=== PATIENT | male | born 1995 | race Caucasian/White ===

== ENCOUNTER 2018-12-13 18:13 | Emergency (ER) | payer SELFPAY ==
[2018-12-13 18:16] VITALS: BP 132/68; PULSE 95; RESP 16; TEMP 36.4; O2SAT 98; BMI 31.2
[2018-12-13] MEDS: 0.9% Normal Saline 1,000 ML 1000 ML IV (21:00)
[2018-12-13] MEDS: Ketorolac 30 MG/ML Syringe IV (21:00)
[2018-12-13 21:03] LABS: Bacteria 0 SEEN /hpf (None Seen); Mucous, Urine 0 SEEN /hpf (<or=2+); Red Blood Cells-Urine 0 SEEN /hpf (0-5); White Blood Cells 0 SEEN /hpf (0-5)
[2018-12-13 21:04] LABS: Absolute Neutrophil Count 2.7 X10^3/uL (2.0-7.7); Basophil# 0.04 X10^3/uL; Basophil% 0.6 % (0-1); Eosinophil# 0.11 X10^3/uL; Eosinophils% 1.8 % (0-5); Hemoglobin 15.7 g/dl (13.0-16.5); Lymphocyte % 47.9 % (19-41); Mean Corp Hgb Conc 33.4 g/gl (32-36); Mean Corpuscular Hgb 28.6 pg (27.0-32.0); Mean Corpuscular Volume 85.6 fL (80-94); Mean Platelet Vol. 9.9 fl (6.2-12.0); Monocyte# 0.45 X10^3/uL; Monocyte% 7.2 % (0-10); Neutrophil # 2.65 X10^3/uL (2.7-7.7); Neutrophil % 42.3 % (47-70); Platelet Count 246 K/mm3 (150-450); RBC Distribution Width CV 13.6 % (11.6-14.6); RBC Distribution Width SD 42.6 fl (35.1-43.9); Red Blood Count 5.49 M/mm3 (4.6-6.2); White Blood Count 6.3 K/mm3 (4.4-11.0)
[2018-12-13 21:19] LABS: POSITIVE COUNT NO; POSITIVE DIFFERENTIAL NO; POSITIVE MORPHOLOGY NO
[2018-12-13 21:19] LABS: Color, Urine Yellow (Yellow); Glucose, Dipstick Normal (Normal); Ketone-Dipstick Negative (Negative); Leukocyte Esterase-Dipstick Negative /ul (Negative); Nitrite-Dipstick Negative (Negative); Occult Blood-Urine Negative /ul (Negative); Protein-Dipstick Negative (Negative); Specific Gravity, Urine 1.015 (1.002-1.030); Urine Bilirubin Dipstick Negative (Negative); Urine Clarity Sl. Cloudy (Clear); Urine Urobilinogen Normal (Normal)
[2018-12-13 21:22] LABS: Anion Gap 3 (5-15); BUN 14 mg/dL (7-18); BUN/Creat Ratio 13.7 RATIO (10-20); Calcium,Total 8.6 mg/dL (8.5-10.1); Chloride 108 mmol/L (98-107); Creatinine, Serum 1.02 mg/dL (0.70-1.30); EST Glomerular Filtration Rate 94 mL/min (>60); Est Glom Filt Rate - Afr Amer 114 mL/min (>60); Estimated Creatinine Clearance 132.32 ml/min; Glucose 88 mg/dL (74-106); Potassium 3.7 mmol/L (3.5-5.1); Sodium Level 140 mmol/L (136-145)
[2018-12-13 21:28] LABS: Squamous Epithelial Cells - UA 0-5 SEEN /hpf (0-5)
--- NOTE | 2018-12-13 22:42 | CT_ITS ---
STUDY: CT ABDOMEN AND PELVIS WITH CONTRAST REASON FOR EXAM: Male, 23 years old. Left upper quadrant pain x3 days diarrhea RADIATION DOSAGE (If Supplied By Facility): CTDIvol = ( 24.59 ) mGy, DLP = ( 1612.96 ) mGycm TECHNIQUE: Transaxial images were obtained from the dome of the diaphragm to the symphysis pubis without oral contrast. Isovue 300 100 IV was administered. Sagittal and coronal images were reconstructed. Individualized dose optimization techniques were used for this CT. COMPARISON: None. FINDINGS: The visualized lung bases are unremarkable. The visualized portions of the heart are within normal limits. There is diffuse fatty infiltration throughout the liver with geographic sparing. Normal gallbladder and extrahepatic biliary system. Normal spleen. Normal pancreas. Normal bilateral adrenal glands. Normal right kidney. Normal left kidney. Normal visualized stomach. Normal small intestine. Normal colon. The appendix is visualized and appears normal. Normal abdominal aorta. Normal inferior vena cava. Normal retroperitoneum. Normal urinary bladder. Normal abdominal wall. Normal osseous structures. CT/Abdomen/Pelvis W IV Cont ONLY IMPRESSION: No acute disease. Incidental note is made of hepatic steatosis. Electronically Signed: Newton Gold MD at 23:50 EDT , Service support ,
[2018-12-13 22:49] VITALS: RESP 18
[2018-12-14 00:05] VITALS: BP 133/78; PULSE 72; RESP 18; O2SAT 95
--- NOTE | 2018-12-14 00:05 | ED.DCSUM_ITS ---
- ER Visit Summary Date of Service: 12/14/18 Chief Complaint: Abdominal pain and diarrhea History of Present Illness: The patient is a 23 M with a 6-week history of intermittent left lower quadrant abdominal pain. Patient states is becoming more frequent and more severe. He is reported diarrhea the last 6 weeks. No blood in the stool. He describes some chills but no fever. He denies any personal or family history of ulcerative colitis, Crohn's disease, or irritable bowel. He has no known history of diverticulitis. Physical Examination: Vital signs unremarkable. Patient sitting upright in bed no acute distress. Heart is regular rate and rhythm. Lung sounds are clear. Abdomen is soft with tenderness in the left lower quadrant. No palpable hernias noted. Test Results: CBC and chemistry studies unremarkable. Urinalysis normal. CT abdomen pelvis with IV contrast shows no acute disease. Emergency Department Course and Treatment: Patient was given Toradol and IV fluids. On repeat evaluation patient is resting comfortably. Test results are discussed with the patient and at bedside. He is advised to follow bland diet and increase fluids. He will be referred to a local physician to establish primary care. Treatment Plan: [] Disposition: Discharge Impression: Abdominal pain, uncertain etiology This note was generated with [employer] in [employer] (PRIMP) dictation software. It may contain incorrect words, spelling, and punctuation that were not noted in review of the chart prior to signing
--- NOTE | 2018-12-14 00:05 | ED.DEP ---
ED Disposition - Plan for ED Patient: Disposition: Home or Assisted Living Instructions: ED Abdominal Pain Unkn Cause Male Referrals: Parsad Dai MD [STAFF PHYSICIAN] - As Needed
== END 2018-12-14 00:10 | disposition home or self-care (01) ==
PROVIDERS: Emergency Provider Emergency Medicine
DX: R10.32 Left lower quadrant pain (principal); R19.7 Diarrhea, unspecified; K21.9 Gastro-esophageal reflux disease without esophagitis; Z79.899 Other long term (current) drug therapy
CPT/HCPCS: 74177; 80048; 81001; 85025; 96361; 96374; 99284; J7030; Q9967; A4216

== ENCOUNTER 2019-06-29 13:57 | Emergency (ER) | payer MEDICAID, SELFPAY ==
[2019-06-29 13:58] VITALS: BP 153/81; PULSE 98; RESP 16; TEMP 36.6; O2SAT 98; BMI 29.8
--- NOTE | 2019-06-29 14:29 | EKG12_ITS ---
Test Reason : CP Blood Pressure : / mmHG Vent. Rate : 090 BPM Atrial Rate : 090 BPM P-R Int : 146 ms QRS Dur : 084 ms QT Int : 348 ms P-R-T Axes : 006 008 -03 degrees QTc Int : 425 ms Normal sinus rhythm Minimal voltage criteria for LVH, may be normal variant Borderline ECG Confirmed by ANUJA MAGUIRE, DANAY ([id number]), editor school photograph SUSHANT PENDLETON ([id number]) on 07/06/2019 9:26:51 A M Referred By: TOBI Confirmed By:TERE LICEA MD
--- NOTE | 2019-06-29 14:40 | RAD_ITS ---
EXAM DESCRIPTION: PORTABLE AP CHEST CLINICAL HISTORY: 23 years Male, chest pain COMPARISON: None FINDINGS: The thorax is intact. The heart and mediastinum appear to be within normal limits. The lungs appear to be well areated without evidence of pneumonic consolidation or pleural effusion. RAD/Chest 1 View (Portable) IMPRESSION: Normal portable chest. Electronically Signed: Tee Henry, at 15:11 EDT Tel , Service support ,
[2019-06-29 14:50] LABS: Absolute Neutrophil Count 3.7 X10^3/uL (2.0-7.7); Basophil# 0.04 X10^3/uL; Basophil% 0.6 % (0-1); Eosinophil# 0.09 X10^3/uL; Eosinophils% 1.2 % (0-5); Hematocrit 46.9 % (40-54); Hemoglobin 15.1 g/dL (13.0-16.5); Lymphocyte % 39.9 % (19-41); Mean Corp Hgb Conc 32.2 g/dL (32-36); Mean Corpuscular Volume 86.9 fL (80-94); Mean Platelet Vol. 9.5 fl (6.2-12.0); Monocyte# 0.54 X10^3/uL; Monocyte% 7.4 % (0-10); NRBC Flagged by Analyzer 0 % (0-5); Neutrophil # 3.68 X10^3/uL (2.7-7.7); Neutrophil % 50.6 % (47-70); Platelet Count 230 K/mm3 (150-450); RBC Distribution Width CV 13.1 % (11.6-14.6); RBC Distribution Width SD 41.3 fl (35.1-43.9); White Blood Count 7.3 K/mm3 (4.4-11.0)
--- NOTE | 2019-06-29 15:01 | ED.VISSUMM ---
- ER Visit Summary Date of Service: 06/29/19 Chief Complaint: Chest pain History of Present Illness: The patient is a 23 M presenting with chest pain. He states this started intermittently this morning. He does not recall anything that makes this better or worse. He complains of sharp mid chest pain. He states he has had this one time in the past several years ago. It resolved on its own. He has history of GERD but states this does not feel similar. He denies PE/DVT risk factors. Denies CAD risk factors. No fever or cough. No other complaints. Physical Examination: Vitals are stable. Patient is afebrile. Alert no acute distress. HEENT exam is unremarkable. Neck is supple. Lungs are clear and equal bilaterally. Chest wall tenderness to palpation with no crepitus Heart is regular rate and rhythm. Abdomen is soft nontender nondistended. Extremities are unremarkable. No edema. Skin is warm and dry. No focal neurologic deficit. Remainder of exam is unremarkable. Emergency Department Course and Treatment: EKG is sinus rate of 90 with no acute ischemic changes. Patient was given Toradol IV. Chest x-ray shows no acute process. CBC, chemistries unremarkable. Troponin is negative. D-dimer negative. On reevaluation, patient is resting comfortably. Patient declined delta troponin. He is given Dr. Holly sonography technologist for no doctor for follow-up. He is advised to return to the ED if he has any worsening complaints. Advised to follow-up with PCP. Disposition: Discharge home Impression: Atypical chest pain This note was generated with [email or web address] dictation software. It may contain incorrect words, spelling, and punctuation that were not noted in review of the chart prior to signing ED Disposition - Plan for ED Patient: Instructions: CHEST PAIN, Uncertain Cause Referrals: Ric Holly MD [NON-STAFF] -
[2019-06-29] MEDS: Ketorolac 30 MG/ML Syringe IV (15:05)
[2019-06-29 15:07] VITALS: BP 137/100; PULSE 82; RESP 17; O2SAT 98
[2019-06-29 15:07] LABS: Anion Gap 4 (5-15); BUN 15 mg/dL (7-18); BUN/Creat Ratio 12.4 RATIO (10-20); Calcium,Total 9.1 mg/dL (8.5-10.1); Chloride 108 mmol/L (98-107); Creatinine, Serum 1.21 mg/dL (0.70-1.30); EST Glomerular Filtration Rate 77 mL/min (>60); Est Glom Filt Rate - Afr Amer 93 mL/min (>60); Estimated Creatinine Clearance 114.58 ml/min; Glucose 86 mg/dL (74-106); Potassium 3.9 mmol/L (3.5-5.1); Sodium Level 141 mmol/L (136-145)
[2019-06-29 15:19] LABS: D-Dimer Quantitative (DVT/PE) < 0.27 FEU/ug/m (0.27-0.49)
--- NOTE | 2019-06-29 16:12 | ED.DEP ---
ED Disposition - Plan for ED Patient: Instructions: CHEST PAIN, Uncertain Cause Referrals: Ric Holly MD [NON-STAFF] -
[2019-06-29 16:14] VITALS: BP 134/93; PULSE 89; RESP 17; O2SAT 95
== END 2019-06-29 16:27 | disposition home or self-care (01) ==
PROVIDERS: Emergency Provider Emergency Medicine
DX: R07.89 Other chest pain (principal); K21.9 Gastro-esophageal reflux disease without esophagitis; Z79.899 Other long term (current) drug therapy
CPT/HCPCS: 71045; 80048; 84484; 85025; 85379; 93005; 96374; 99284; A4216

== ENCOUNTER 2020-02-07 16:53 | Emergency (ER) | payer MEDICAID, SELFPAY ==
[2020-02-07 16:53] VITALS: BP 149/81; PULSE 132; RESP 18; TEMP 36.3; O2SAT 96; BMI 26.2
--- NOTE | 2020-02-07 17:07 | ED.DCSUM_ITS ---
- ER Visit Summary Date of Service: 02/07/20 Chief Complaint: Left foot injury History of Present Illness: The patient is a 24 M presenting with left foot injury. Patient was at work and dropped a heavy stone on his left foot. He is able to ambulate with pain. He took no medication prior to arrival. He denies other injuries. Physical Examination: Vitals are stable. Patient is afebrile. Alert no acute distress. HEENT exam is unremarkable. Lungs are clear and equal bilaterally. Heart is regular rate and rhythm. Extremities left great toe ecchymosis and tenderness. No midfoot or ankle tenderness. Normal pulses. Skin is warm and dry. No focal neurologic deficit. Remainder of exam is unremarkable. Emergency Department Course and Treatment: Left foot x-ray shows normal x-ray examination of the foot. Postop shoe was applied. Patient does not wish to file Worker's Compensation paperwork. He was advised to follow-up with primary care physician. Advised return to ED for worsening complaints. Disposition: Discharge home Impression: Left great toe contusion This note was generated with [employer] dictation software. It may contain incorrect words, spelling, and punctuation that were not noted in review of the chart prior to signing ED Disposition - Plan for ED Patient: Referrals: Eric Evans MD [Primary Care Provider] -
--- NOTE | 2020-02-07 17:22 | RAD_ITS ---
STUDY: X-RAY - LEFT FOOT CLINICAL: Male, 24 years old. LEFT FOOT PAIN AFTER DROPPING SOMETHING HEAVY ON TOP OF IT TECHNIQUE: 3 view(s) of the foot. COMPARISON: None. FINDINGS: Normal talus, calcaneus, and tarsal bones. Normal visualized subtalar, talonavicular, calcaneocuboid, tarsal and tarsometatarsal articulations. Normal metatarsi. Normal metatarsophalangeal joint of the great toe. Normal tibial and fibular sesamoid bones. Normal interphalangeal joint of the great toe. Normal phalanges of the great toe. Normal second through fifth metatarsophalangeal joints. Normal interphalangeal joints and phalanges of the lesser toes. The soft tissue structures are unremarkable. There is no demonstrated fracture. RAD/Foot min 3 Views IMPRESSION: Normal x-ray examination of the foot. Electronically Signed: Yoel Perales MD at 17:57 EDT , Service support ,
--- NOTE | 2020-02-07 18:19 | ED.DEP ---
ED Disposition - Plan for ED Patient: Instructions: ED FOOT CONTUSION Referrals: Eric Evans MD [Primary Care Provider] -
[2020-02-07 18:29] VITALS: PULSE 92
== END 2020-02-07 18:30 | disposition home or self-care (01) ==
PROVIDERS: Emergency Provider Emergency Medicine; PCP Family Medicine
DX: S90.112A Contusion of left great toe without damage to nail, initial encounter (principal); W20.8XXA Other cause of strike by thrown, projected or falling object, initial encounter; Y93.9 Activity, unspecified; Y92.9 Unspecified place or not applicable; Y99.0 Civilian activity done for income or pay; Z79.899 Other long term (current) drug therapy
CPT/HCPCS: 73630; 99284

== ENCOUNTER 2020-07-30 17:59 | Emergency (ER) | payer MEDICAID, SELFPAY ==
[2020-07-30 18:02] VITALS: BP 148/83; PULSE 104; RESP 18; TEMP 36.2; O2SAT 98; BMI 34.8
--- NOTE | 2020-07-30 19:44 | ED.VISSUMM ---
- ER Visit Summary Date of Service: 07/30/20 Chief Complaint: Headache History of Present Illness: The patient is a 25 M who presents with a headache. Started today. States he woke up with a headache. Throughout the day the headache is improving but states he had nausea and vomiting along with some photophobia. He has no history of migraine headaches. He did take Tylenol at home. He had some nausea and vomiting and a cough. He is concerned about coronavirus. He denies having any fevers. He has no neck pain. He states that his headache and symptoms are actually improving at this time Physical Examination: Vital signs reviewed. HEENT exam unremarkable. Heart is regular rate and rhythm without murmurs. Lungs are clear to auscultation. Abdomen is soft and nontender. Extremities reveal no edema. Skin exam normal. Neurologic exam normal. Test Results: None performed Emergency Department Course and Treatment: The patient looks well. He has a normal neurologic examination at this time. His symptoms are improving and therefore I do not feel he needs any imaging or laboratory studies at this time. I will give him Toradol and Zofran ODT here for his symptoms. He will have a coronavirus test which will be sent out. He will need to follow-up with his PCP. Treatment Plan: [] Disposition: Discharge Impression: Headache This note was generated with [employer] dictation software. It may contain incorrect words, spelling, and punctuation that were not noted in review of the chart prior to signing ED Disposition - Plan for ED Patient: Disposition: Home or Assisted Living Instructions: ED Headache Unspecified Referrals: Eric Evans MD [Primary Care Provider] -
[2020-07-30] MEDS: Ondansetron ODT 4 MG Tablet 8 MG PO (19:52)
[2020-07-30] MEDS: Ketorolac 30 MG/ML Syringe IM (19:52)
== END 2020-07-30 20:17 | disposition home or self-care (01) ==
PROVIDERS: Emergency Provider Emergency Medicine; PCP Family Medicine
DX: R51.9 Headache, unspecified (principal); R05 Cough; R11.2 Nausea with vomiting, unspecified
CPT/HCPCS: 87635; 96372; 99283; U0003

== ENCOUNTER 2020-08-01 22:29 | Emergency (ER) | payer MEDICAID, SELFPAY ==
[2020-08-01 22:30] VITALS: BP 138/88; PULSE 90; RESP 16; TEMP 36.1; O2SAT 99; BMI 26.4
--- NOTE | 2020-08-01 22:41 | ED.VIS.UPPEX ---
History of Present Illness Chief Complaint: Laceration Informant: Patient Occurred: Today - JPTA Mechanism/Context: Injury - accidentally scraped while handling a potato slicer while moving/packing Context: Sudden Onset Timing: Continuous Quality of Pain: - - sore Location: right little fingertip Current Severity: Mild Maximum Severity: Moderate Worsened by: palpation Relieved by: leaving alone/bandage Associated Symptoms: Negative for: Parasthesia, Weakness, Loss of Funtion Narrative: RHD. Tetanus Immunization: >10 years - Past Medical History (1) GERD (gastroesophageal reflux disease) Status: Chronic Past Medical History - Allergies and Home Meds Allergies/Adverse Reactions: Allergies No Known Allergies Allergy (Verified 08/01/20 22:32) Primary Care Physician: Eric Evans MD [Primary Care Provider] - Lives: With Family Smoking Status: Former smoker Review of Systems General: Denies: Chills, Fever, Sweats Musculoskeletal: Reports: Extremity Pain. Denies: Swelling Skin: Reports: Wounds. Denies: Rash Neurological: Denies: Headache, Weakness, Numbness Physical Exam Vital Signs/Narrative: Vital Signs Temp Pulse Resp BP Pulse Ox 08/01/20 22:30 97 F L 90 16 138/88 H 99 General: Well nourished, Well developed, - - NAD Head: Normocephalic, Atraumatic Extremeties: Very small epidermal avulsion to the distal aspect of the right little finger, just ulnar to the nail. Full range of motion, no subungual hematoma or other injuries. Skin: Normal color, No rash, Trauma - Minor tender epidermal avulsion, dermis is intact and there is no laceration, right little fingertip. Neurological: Alert, Oriented x3, Cranial nerves II-XII grossly intact, Normal Strength, Normal Sensation, Normal Gait Psychological: Normal affect, Normal Mood Diagnostic/Tx/Re-eval - Medical Decision Making Patient was reassured, there is no repair indicated, there is no laceration. Is a very minor avulsion of the epidermis, it is less than half centimeter long it was cleansed and bandaged with bacitracin, he desired a tetanus update which is fine, although this is not a high risk tetanus wound. ED Disposition - Plan for ED Patient: Disposition: Home or Assisted Living Diagnosis: Abrasion of right little finger, Tetanus-diphtheria (Td) vaccination Instructions: ED AVULSION LACERATION Referrals: Eric Evans MD [Primary Care Provider] - As Needed
[2020-08-01] MEDS: Diphth,Pertuss(Acell),Tet Vac 0.5 ML Vial IM (22:52)
== END 2020-08-01 23:01 | disposition home or self-care (01) ==
LOC: ED 22:51
PROVIDERS: Emergency Provider Emergency Medicine; PCP Family Medicine
DX: S60.416A Abrasion of right little finger, initial encounter (principal); W27.4XXA Contact with kitchen utensil, initial encounter; Y93.E6 Activity, residential relocation; Y92.9 Unspecified place or not applicable; Y99.9 Unspecified external cause status; Z23 Encounter for immunization; K21.9 Gastro-esophageal reflux disease without esophagitis; Z79.899 Other long term (current) drug therapy; Z87.891 Personal history of nicotine dependence
CPT/HCPCS: 90715; 99282

== ENCOUNTER 2020-10-28 19:59 | Emergency (ER) | payer MEDICAID, SELFPAY ==
[2020-10-28 20:00] VITALS: BP 151/96; PULSE 100; RESP 18; TEMP 36.5; O2SAT 99; BMI 28.7
--- NOTE | 2020-10-28 20:12 | ED.DCSUM_ITS ---
History of Present Illness Chief Complaint: Abd Pain Informant: Patient Narrative: 25-year-old male presenting with lower chest wall and upper abdominal pain since this morning. He states that yesterday he was sledding on a saucer and was going fairly fast hit a bump and came down on the ring partially striking his chest and partially striking his abdomen. He states he did not have abdominal pain until this morning but it has been painful all day. He denies feeling shortness of breath, constipation, diarrhea. He does not see any bruising on his chest or abdomen. He states the pain is worse in the right side. - Past Medical History (1) GERD (gastroesophageal reflux disease) Status: Chronic Past Medical History - Allergies and Home Meds Allergies/Adverse Reactions: Allergies No Known Allergies Allergy (Verified 10/28/20 20:02) Primary Care Physician: Eric Evans MD [Primary Care Provider] - Prior records reviewed: Yes Past Medical History: - - Reviewed in problem list Surgical History: noncontributory Lives: Spouse/ Significant Other Smoking Status: Former smoker Alcohol: None Drugs: None Review of Systems General: Denies: Chills, Fever, Sweats Eyes: Denies: Visual changes - bilaterally, Diplopia ENT: Denies: Rhinorrhea, Sore throat Cardiovascular: Reports: Chest pain - Lower chest wall pain. Respiratory: Denies: Dyspnea, Cough Gastrointestinal: Reports: Abdominal pain. Denies: Nausea, Vomiting, Diarrhea, Constipation Genitourinary: Denies: Dysuria, Hematuria Musculoskeletal: Denies: Myalgias, Arthralgias Skin: Denies: Rash, Abscess Neurological: Denies: Headache, Weakness Psych: Denies: Depression, Anxiety Physical Exam Vital Signs/Narrative: Vital Signs Temp Pulse Resp BP Pulse Ox 10/28/20 20:00 97.7 F L 100 18 151/96 H 99 General: Well nourished, No Acute Distress Head: Normocephalic, Atraumatic Eyes: Perrl, EOMI. Negative for: Scleral icterus ENT: Moist mucous membranes, No rhinorrhea Cardiovascular: Regular rate, Regular rhythm Respiratory: No distress, CTA bilaterally, Chest tenderness - Mild chest wall pain in the bilateral lower ribs without crepitance, deformity, ecchymosis. Equal symmetric breath sounds and chest wall rise. Abdomen: Soft, Nondistended, Tender - There is to palpation epigastrium and right upper quadrant. Abdomen is nonperitoneal. Skin: Normal color, No rash Neurological: Alert, Oriented x3 Psychological: Normal affect, Normal Mood Diagnostic/Tx/Re-eval Clinical Impression(s) from Imaging Studies Abdomen/Pelvis CT 10/28/20 21:09 IMPRESSION: Normal enhanced CT of the abdomen and pelvis. Electronically Signed: Newton Gold MD at 22:03 EST , Service support , Chest CT 10/28/20 21:09 IMPRESSION: Normal enhanced CT Chest examination. Electronically Signed: Newton Gold MD at 22:11 EST , Service support , Laboratory Data 10/28/20 10/28/20 10/28/20 20:20 20:20 20:28 WBC 7.7 RBC 5.71 Hgb 15.3 Hct 48.0 MCV 84.1 MCH 26.8 L MCHC 31.9 L RDW Std Deviation 41.1 RDW Coeff of Mark 13.4 Plt Count 250 MPV 9.5 Immature Gran % (Auto) 0.300 Neut % (Auto) 36.2 L Lymph % (Auto) 52.9 H [place] % (Auto) 8.9 Eos % (Auto) 1.3 Baso % (Auto) 0.4 Absolute Neuts (auto) 2.8 Absolute Lymphs (auto) 4.05 Nucleated RBC % 0 Sodium 143 Potassium 3.5 Chloride 109 H Carbon Dioxide 27.0 Anion Gap 7 BUN 12 Creatinine 0.99 Estim Creat Clear Calc 133.96 Est GFR (MDRD) Af Amer 117 Est GFR (MDRD) Non-Af 97 BUN/Creatinine Ratio 12.2 Glucose 132 H Calcium 8.9 Total Bilirubin 0.40 AST 21 ALT 70 H Alkaline Phosphatase 143 H Troponin I < 0.015 Total Protein 7.3 Albumin 3.7 Globulin 3.6 Albumin/Globulin Ratio 1.0 Lipase 103 Urine Color Straw Urine Clarity Clear Urine pH 6.5 Ur Specific [place] 1.010 Urine Protein Negative Urine Glucose (UA) Normal Urine Ketones Negative Urine Occult Blood 10 H Urine Nitrite Negative Urine Bilirubin Negative Urine Urobilinogen Normal Ur Leukocyte Esterase Negative - Medical Decision Making Present with upper abdominal and lower chest wall pain after sliding on a slide yesterday and injuring this. There is no signs of external injury. Lab work is within normal limits with exception of a slight bump of his LFTs. His bilirubin is normal. He does not have a leukocytosis. His hemoglobin is stable. Renal function is normal. Patient does have concerned that this could be his gallbladder although it started hurting after he injured himself. He states he has had an ultrasound of his gallbladder before and it was negative. Patient also has history of GERD and ate pizza yesterday. I do not believe he needs an emergent ultrasound of his right upper quadrant at this time. He was given return precautions. He is given a work note for home. Impression: 1. Abdominal pain 2. Chest wall pain ED Disposition - Plan for ED Patient: Disposition: Home or Assisted Living Instructions: ED Abd Injury Blunt Benign Referrals: Eric Evans MD [Primary Care Provider] -
[2020-10-28 20:28] LABS: Absolute Lymphocyte Count 4.05 X10^3/uL (0.83-4.51); Absolute Neutrophil Count 2.8 X10^3/uL (2.0-7.7); Basophil# 0.03 X10^3/uL; Basophil% 0.4 % (0-1); Eosinophils% 1.3 % (0-5); Hemoglobin 15.3 g/dL (13.0-16.5); Lymphocyte # 4.05 X10^3/ul (4.0); Lymphocyte % 52.9 % (19-41); Mean Corp Hgb Conc 31.9 g/dL (32-36); Mean Corpuscular Hgb 26.8 pg (27.0-32.0); Mean Corpuscular Volume 84.1 fL (80-94); Mean Platelet Vol. 9.5 fl (6.2-12.0); Monocyte# 0.68 X10^3/uL; Monocyte% 8.9 % (0-10); NRBC Flagged by Analyzer 0 % (0-5); Neutrophil # 2.78 X10^3/uL (2.7-7.7); Neutrophil % 36.2 % (47-70); Platelet Count 250 K/mm3 (150-450); RBC Distribution Width CV 13.4 % (11.6-14.6); RBC Distribution Width SD 41.1 fl (35.1-43.9); Red Blood Count 5.71 M/mm3 (4.6-6.2); White Blood Count 7.7 K/mm3 (4.4-11.0)
[2020-10-28 20:45] LABS: Color, Urine Straw (Yellow); Glucose, Dipstick Normal (Normal); Ketone-Dipstick Negative (Negative); Leukocyte Esterase-Dipstick Negative /ul (Negative); Nitrite-Dipstick Negative (Negative); Occult Blood-Urine 10 /ul (Negative); Protein-Dipstick Negative (Negative); Urine Bilirubin Dipstick Negative (Negative); Urine Clarity Clear (Clear); Urine Urobilinogen Normal (Normal); Urine pH 6.5 (5.0 - 8.0)
[2020-10-28 20:48] LABS: AST(SGOT) 21 U/L (15-37); Alanine Aminotransfer ALT/SGPT 70 U/L (16-61); Albumin, Serum 3.7 g/dL (3.2-5.0); Alkaline Phosphatase 143 U/L (45-117); Anion Gap 7 (5-15); BUN 12 mg/dL (7-18); BUN/Creat Ratio 12.2 RATIO (10-20); Calcium,Total 8.9 mg/dL (8.5-10.1); Chloride 109 mmol/L (98-107); Creatinine, Serum 0.99 mg/dL (0.70-1.30); EST Glomerular Filtration Rate 97 mL/min (>60); Est Glom Filt Rate - Afr Amer 117 mL/min (>60); Estimated Creatinine Clearance 133.96 ml/min; Globulin 3.6 g/dL (2.2-4.2); Glucose 132 mg/dL (74-106); Lipase 103 U/L (73-393); Potassium 3.5 mmol/L (3.5-5.1); Protein, Total 7.3 g/dL (6.4-8.2); Sodium Level 143 mmol/L (136-145)
--- NOTE | 2020-10-28 21:09 | CT_ITS ---
STUDY: CT ABDOMEN AND PELVIS WITH CONTRAST REASON FOR EXAM: Male, 25 years old. RUQ and rt lower rib pain. Sledding injury 10/27/20 RADIATION DOSAGE (If Supplied By Facility): CTDIvol = ( 18.01 ) mGy, DLP = ( 2025.67 ) mGycm TECHNIQUE: Transaxial images were obtained from the dome of the diaphragm to the symphysis pubis without oral contrast. IV 100mL Isovue-370 was administered. Sagittal and coronal images were reconstructed. Individualized dose optimization techniques were used for this CT. COMPARISON: 12/13/2018. FINDINGS: The visualized lung bases are unremarkable. The visualized portions of the heart are within normal limits. Normal liver. Normal gallbladder and extrahepatic biliary system. Normal spleen. Normal pancreas. Normal bilateral adrenal glands. Normal right kidney. Normal left kidney. Normal visualized stomach. Normal small intestine. Normal colon. The appendix is visualized and appears normal. Normal abdominal aorta. Normal inferior vena cava. Normal retroperitoneum. Normal urinary bladder. Fat-containing inguinal hernia on the right. Normal abdominal wall. Normal osseous structures. CT/Abdomen/Pelvis W IV Cont ONLY IMPRESSION: Normal enhanced CT of the abdomen and pelvis. Electronically Signed: Newton Gold MD at 22:03 EST , Service support ,
--- NOTE | 2020-10-28 21:09 | CT_ITS ---
STUDY: CT CHEST WITH CONTRAST REASON FOR EXAM: Male, 25 years old. RUQ and rt lower rib pain. Sledding injury 10/27/20 RADIATION DOSAGE (If Supplied By Facility): CTDIvol = ( 18.01 ) mGy, DLP = ( 2025.67 ) mGycm TECHNIQUE: Transaxial imaging was performed following intravenous administration of ISOVUE 370 100ML. Individualized dose optimization techniques were used for this CT. COMPARISON: Chest x-ray 06/29/2019 FINDINGS: The lungs are normal. There is no demonstrated pleural abnormality. Normal heart and pericardium. Normal mediastinum. Normal hilar regions. Normal enhanced pulmonary arteries. Normal aorta arch and descending thoracic aorta. Normal osseous structures. There is no demonstrated abnormality of the visualized upper abdomen. CT/Chest WITH Contrast IMPRESSION: Normal enhanced CT Chest examination. Electronically Signed: Newton Gold MD at 22:11 EST , Service support ,
[2020-10-28 22:44] VITALS: BP 132/96; PULSE 99; RESP 18; O2SAT 98
== END 2020-10-28 22:45 | disposition home or self-care (01) ==
PROVIDERS: Emergency Provider Student in an Organized Health Care Education/Training Program; PCP Family Medicine
DX: R10.10 Upper abdominal pain, unspecified (principal); R07.89 Other chest pain; K21.9 Gastro-esophageal reflux disease without esophagitis; Z87.891 Personal history of nicotine dependence; Z79.899 Other long term (current) drug therapy
CPT/HCPCS: 71260; 74177; 80053; 81002; 83690; 84484; 85025; 99283; Q9967; A4216

== ENCOUNTER 2020-10-29 16:58 | Emergency (ER) | payer MEDICAID, SELFPAY ==
[2020-10-28 20:00] VITALS: BMI 28.7
[2020-10-29 16:59] VITALS: BP 143/103; PULSE 105; RESP 16; TEMP 36.1; O2SAT 97; BMI 29.9
--- NOTE | 2020-10-29 17:16 | US_ITS ---
STUDY: ABDOMINAL ULTRASOUND - RIGHT UPPER QUADRANT REASON FOR VISIT: Male, 25 years old RUQ PAIN TECHNIQUE: Ultrasound evaluation of the right upper quadrant was performed with real-time and static kaufman-scale imaging. TECHNICAL QUALITY: Adequate. COMPARISON: CT abdomen and pelvis 10/28/2020 FINDINGS: Liver: The liver measures 18.8 cm. There is normal echogenicity of the liver. The bile ducts are within normal limits. There is hepatic color flow. The direction of portal flow is hepatopetal. There is no demonstrated mass lesion. Gallbladder: Normal distended gallbladder. The gallbladder wall measures 2 mm. There is a negative sonographic Emmanuel''s sign. There is no pericholecystic fluid. There are no gallstones. Common Bile Duct (C.B.D.): The common bile duct measures 3 mm. Pancreas: Tail not well visualized due to bowel gas. Right Kidney: Normal size of the right kidney. The right kidney measures 11 cm. Normal renal cortex. The right cortex measures 2 cm. There is no demonstrated renal mass or cyst. There is no right hydronephrosis. US/Abdomen Limited IMPRESSION: Incompletely visualized pancreas otherwise normal Electronically Signed: Newton Gold MD at 18:52 EST , Service support ,
[2020-10-29] MEDS: 0.9% Normal Saline 1,000 ML 1000 ML IV (17:24)
[2020-10-29] MEDS: Ondansetron 4 MG/2 ML Vial IV (17:24)
--- NOTE | 2020-10-29 17:25 | ED.VISSUMM ---
- ER Visit Summary Date of Service: 10/29/20 Chief Complaint: Right upper quadrant pain History of Present Illness: The patient is a 25 M presenting with right upper quadrant pain. Patient states this started yesterday. He states on Thursday he was sleddiing and the rim of the sled was hitting his upper abdomen. He did not have pain until the following day. He was seen in the ED yesterday and had a negative work-up with CT chest and abdomen. He is concerned this may be unrelated to the sledding incident and related to his gallbladder. He was told yesterday if his symptoms continued he would need an ultrasound of his gallbladder. Today he had an episode of nausea vomiting x1 and persistent right upper quadrant pain. He denies other complaints. Physical Examination: Vitals are stable. Patient is afebrile. Alert no acute distress. HEENT exam is unremarkable. Neck is supple. Lungs are clear and equal bilaterally. Heart is regular rate and rhythm. Abdomen is soft right upper quadrant tenderness with no guarding or rebound Extremities are unremarkable. Skin is warm and dry. Remainder of exam is unremarkable. Emergency Department Course and Treatment: Patient was given IV fluids, Zofran. CBC, chemistries unremarkable. Alk phos 135, ALT 62. Lipase is normal. Gallbladder ultrasound shows Incompletely visualized pancreas otherwise normal. Patient was given Toradol IV. With the onset of his symptoms after sled riding I suspect this is likely musculoskeletal. He is given a prescription for Naprosyn. He is advised to follow-up with his primary care physician. Advised to return to ED for worsening complaints. Disposition: Discharge home Impression: Abdominal pain This note was generated with [employer] dictation software. It may contain incorrect words, spelling, and punctuation that were not noted in review of the chart prior to signing ED Disposition - Plan for ED Patient: Instructions: ED Unknown Causes of Abdominal ... Prescriptions: Naproxen [Naprosyn] 500 mg PO BID PRN #20 tab Prescription Printed Referrals: Eric Evans MD [Primary Care Provider] -
[2020-10-29 17:42] LABS: Absolute Lymphocyte Count 3.08 X10^3/uL (0.83-4.51); Absolute Neutrophil Count 3.6 X10^3/uL (2.0-7.7); Basophil# 0.03 X10^3/uL; Basophil% 0.4 % (0-1); Eosinophil# 0.11 X10^3/uL; Eosinophils% 1.5 % (0-5); Hemoglobin 15.1 g/dL (13.0-16.5); Lymphocyte # 3.08 X10^3/ul (4.0); Mean Corp Hgb Conc 32.1 g/dL (32-36); Mean Corpuscular Hgb 26.7 pg (27.0-32.0); Mean Platelet Vol. 9.7 fl (6.2-12.0); Monocyte# 0.66 X10^3/uL; Monocyte% 8.8 % (0-10); NRBC Flagged by Analyzer 0 % (0-5); Neutrophil # 3.62 X10^3/uL (2.7-7.7); Platelet Count 256 K/mm3 (150-450); RBC Distribution Width CV 13.5 % (11.6-14.6); RBC Distribution Width SD 41.1 fl (35.1-43.9); Red Blood Count 5.66 M/mm3 (4.6-6.2); White Blood Count 7.5 K/mm3 (4.4-11.0)
[2020-10-29 18:00] LABS: ALB/GLOB Ratio 0.9 RATIO (0.9-2.4); AST(SGOT) 21 U/L (15-37); Alanine Aminotransfer ALT/SGPT 62 U/L (16-61); Albumin, Serum 3.4 g/dL (3.2-5.0); Alkaline Phosphatase 135 U/L (45-117); Anion Gap 7 (5-15); BUN 11 mg/dL (7-18); BUN/Creat Ratio 12.5 RATIO (10-20); Calcium,Total 8.6 mg/dL (8.5-10.1); Chloride 107 mmol/L (98-107); Creatinine, Serum 0.88 mg/dL (0.70-1.30); EST Glomerular Filtration Rate 111 mL/min (>60); Est Glom Filt Rate - Afr Amer 134 mL/min (>60); Globulin 3.7 g/dL (2.2-4.2); Glucose 126 mg/dL (74-106); Lipase 79 U/L (73-393); Potassium 3.8 mmol/L (3.5-5.1); Protein, Total 7.1 g/dL (6.4-8.2); Sodium Level 141 mmol/L (136-145)
--- NOTE | 2020-10-29 19:12 | ED.DEP ---
ED Disposition - Plan for ED Patient: Instructions: ED Unknown Causes of Abdominal ... Prescriptions: Naproxen [Naprosyn] 500 mg PO BID PRN #20 tab Prescription Printed Referrals: Eric Evans MD [Primary Care Provider] -
[2020-10-29] MEDS: Ketorolac 30 MG/ML Syringe IV (19:15)
[2020-10-29 19:28] VITALS: BP 133/78; PULSE 90; RESP 16; O2SAT 98
== END 2020-10-29 19:29 | disposition home or self-care (01) ==
LOC: ED 17:13
PROVIDERS: Emergency Provider Emergency Medicine; PCP Family Medicine
DX: R10.11 Right upper quadrant pain (principal); R11.2 Nausea with vomiting, unspecified; Z79.899 Other long term (current) drug therapy
CPT/HCPCS: 76705; 80053; 83690; 85025; 96361; 96374; 96375; 99283; J7030; A4216; J2405

== ENCOUNTER 2021-05-23 20:11 | Emergency (ER) | payer MEDICAID, SELFPAY ==
[2021-05-23 20:12] VITALS: BP 154/87; PULSE 93; RESP 18; TEMP 36.9; O2SAT 96; BMI 25.7
--- NOTE | 2021-05-23 20:26 | EX.ED.VIS.EY ---
HPI History of Present Illness Chief Complaint: Eye Problem Onset/Context/Timing Location: Right Eye Onset: Today Timing: Continuous Current Severity: Mild Narrative Narrative: Patient presents with redness of the lateral aspect of his right eye, with slight eye discomfort. He denies any loss of vision. He states that he was sitting at home today, and his noticed that the lateral aspect of his right eye that is usually white was red. He stated to her no I get those all the time and knows it is a broken blood vessel. He denies taking any blood thinners. No injury to his eye. He has been coughing recently. No fevers or chills. However, within the last hour, he has noticed that he is had some discomfort in that area. He denies any exacerbating or alleviating factors. He wears glasses but no contact lenses. He presents for evaluation. He states that his eye has been watering more in the last hour. He has not been doing any activity such as grinding metal and has not noticed any foreign body entering his eye in the last day. PFSH PFS Home Medications omeprazole 40 mg PO DAILY 12/13/18 [History Last Taken 12/13/18] Allergy/AdvReac Type Severity Reaction Status Date / Time No Known Allergies Allergy Verified 05/23/21 20:12 Social History Smoking Status: Former smoker ROS ROS ED ROS Narrative Constitutional: No fever, no chills. HEENT: No sore throat. No neck pain. No loss of vision. No rhinorrhea. Redness of right eye. Mild discomfort in that area on lateral aspect of eye. Minimal tearing. No exudate. Cardiovascular: No chest pain. No palpitations. No pedal edema. Respiratory: No cough, no shortness of breath. Abdominal: No abdominal pain. No nausea. No vomiting. Genitourinary: No dysuria. No hematuria. Musculoskeletal: No myalgias. No arthralgias. Neurologic: No headaches. No dizziness. No lightheadedness. Skin: No rash. No change in color. Psychiatric: No depression. No anxiety. EXAM Physical Exam Const Vital Signs: 05/23/21 20:12 Temperature 98.4 F Temperature Source Temporal Pulse Rate 93 Respiratory Rate 18 Blood Pressure 154/87 H Blood Pressure Mean 109 Pulse Ox 96 Oxygen Delivery Method Room Air Eyes Eyes Narrative: Afebrile. Vital signs noted. HEENT: Normocephalic. Atraumatic. PERRL, EOMI. Neck soft and supple. No point tenderness or step off. Positive subconjunctival hemorrhage lateral aspect of right eye. No noted exudate. Cardiovascular: Regular rate and rhythm. No murmurs, rubs, or gallops appreciated. Respiratory: No tachypnea. Lungs clear to auscultation bilaterally. Gastrointestinal: Abdomen soft, nontender, with normoactive bowel sounds. No rebound or guarding. Neurological: Awake. Alert. Nonfocal, nonlateralizing. Skin: No rash. Normal color. No pallor. Musculoskeletal: No pedal edema. Full range of motion extremities. MDM MDM MDM Narrative Medical decision making narrative: Visual acuity will be obtained. Additionally, I will instill tetracaine and fluorescein in his right eye and examine it under Yo lamp/bluelight. I do feel that this is a benign subconjunctival hemorrhage. There is no evidence of corneal abrasion. Treat will be symptomatic. Additionally, he elected to receive his first dose of the Pfizer vaccination here in the emergency department. He will follow up with his primary care physician/graphic art sales representative/forensic computer examiner for a subconjunctival hemorrhage and he will follow-up with the health department for a second Covid vaccination. Disposition is discharged home in stable condition. Discharge Plan Triage Chief Complaint: Eye Problem ED Provider: Cristopher Harmon Dx/Rx/DC Orders Clinical Impression: Subconjunctival hemorrhage of right eye, Discomfort of right eye Instructions: ED Subconjunctival Hemorrhage Prescriptions: No Action omeprazole 20 MG capsule 40 mg PO DAILY RF: 0 Primary Care Provider: Eric Evans Referrals: Eric Evans MD [Primary Care Provider] - 05/30/21 Activity Restrictions/Additional Instructions: You will need to report to the health department for your second Covid vaccination. Disposition Disposition: Home, Self Care
[2021-05-23] MEDS: Fluorescein 1 MG STRIP 1 STRIP RIGHT EYE (20:33)
[2021-05-23] MEDS: Tetracaine 0.5% Ophthalmic Bottle 1 DRP RIGHT EYE (20:33)
[2021-05-23] MEDS: COVID-19 VACC, MRNA(PFIZER)/PF 30 MCG/0.3 ML SYRINGE IM (22:48)
[2021-05-23 23:19] VITALS: BP 133/87; PULSE 84; RESP 16; O2SAT 97
== END 2021-05-23 23:20 | disposition home or self-care (01) ==
PROVIDERS: Emergency Provider Emergency Medicine; PCP Family Medicine
DX: H11.31 Conjunctival hemorrhage, right eye (principal); Z87.891 Personal history of nicotine dependence; Z79.899 Other long term (current) drug therapy
CPT/HCPCS: 91300; 99283

== ENCOUNTER 2021-08-28 11:54 | Emergency (ER) | payer MEDICAID, SELFPAY ==
[2021-08-28 11:54] VITALS: BP 142/81; PULSE 143; RESP 18; TEMP 36.4; O2SAT 97; BMI 24.3
--- NOTE | 2021-08-28 12:06 | EDS_ITS ---
HPI History of Present Illness Chief Complaint: Lower Extremity Injury Detail of Chief Complaint: Left knee injury that occurred last evening about 7:30 PM Informant: patient Narrative Narrative: Patient presents to the emergency department with injury to the left knee that occurred last night about 7:30 PM. Patient states that he was stepping off a concrete onto some wet grass when he slipped and twisted his left knee as he fell. Patient unable to bear weight now because of the pain. Patient states he has had some ligament issues with that knee in the past and at times will dislocate. Patient has never had surgery on that knee. He denies any other injuries. PFSH PFSH Medical History no medical history Home Medications omeprazole 40 mg PO DAILY 12/13/18 [History Last Taken 12/13/18] hydrocodone-acetaminophen 1 tab PO Q4H PRN PRN 2 Days #10 tablet 08/28/21 [Rx Last Taken Unknown] naproxen 500 mg PO BID #14 tab 08/28/21 [Rx Last Taken Unknown] Allergy/AdvReac Type Severity Reaction Status Date / Time No Known Allergies Allergy Verified 08/28/21 12:15 Family History no significant family his Surgical History no surgical history Social History Smoking Status: Former smoker ROS ROS ED Constitutional Constitutional ED: Reports systems reviewed and no addt'l complaints, except as documented; Denies body ache(s), change in weight or chills Eyes Eyes: Denies acute decrease in peripheral vision, change in vision, double vision or loss of vision ENT ENT ED: Reports none; Denies ear pain, lip swelling, loss taste/smell, neck pain, otalgia or sore throat Cardiovascular Cardiovascular: Reports none; Denies abdominal pain, chest pain with activity, leg edema, lightheadedness, palpitations, rapid heart rate or syncope Respiratory/Chest Respiratory/Chest: Reports none; Denies change in mental status, dry cough, dyspnea, hemoptysis, shortness of breath at rest or shortness of breath with exertion Gastrointestinal Gastrointestinal: Reports none; Denies abdominal pain, change in stool character, diarrhea, hematemesis, hematochezia, melena, rectal bleeding or vomiting Genitourinary Genitourinary ED: Reports none; Denies abdominal discomfort, anuria, dysuria, genital pain or polyuria Musculoskeletal Musculoskeletal: Reports none and other Details: Left knee injury/pain ; Denies arthralgias, back pain, difficulty walking, extremity pain, muscle weakness or myalgias Integumentary Reports none; Denies abscess or rash Neurologic Neurologic: Reports none; Denies abnormal gait, confusion, focal weakness, frequent falls, headache(s), loss of vision, numbness, paresthesias, radicular pain, vertigo or weakness Psychiatric Psychiatric: Reports systems reviewed and no addt'l complaints, except as documented and none; Denies behavioral changes, confusion, difficulty concentrating, hallucinations, suicidal ideation, tactile hallucinations or visual hallucinations Endocrine Endocrinology: Denies none, cold intolerance, excessive sweating, fatigue or heat intolerance Hematologic/Lymphatic Hematologic/Lymphatic: Reports none; Denies anemia, easy bleeding or easy bruising Allergic/Immunologic Allergic/Immunologic ED: Denies as per HPI, none, lip swelling, mouth swelling, throat swelling, tongue swelling or hives EXAM Physical Exam Const Vital Signs: 08/28/21 11:54 Temperature 97.5 F L Temperature Source Temporal Pulse Rate 143 H Respiratory Rate 18 Blood Pressure 142/81 H Blood Pressure Mean 101 Pulse Ox 97 Oxygen Delivery Method Room Air Positive well nourished and well developed General Appearance ED: well developed and NAD HEENT Reports TM's clear and moist mucous membranes normocephalic and atraumatic; Negative for trauma or tenderness Tympanic Membrane ED: Yes TM's clear Eyes PERRL and EOMs intact bilaterally General Eye ED: Negative for pale conjunctiva or scleral icterus Neck no lymphadenopathy, supple and no JVD General: Negative for tenderness Chest Wall inspection of chest normal and palpation of chest normal Chest: Negative for tenderness Resp normal respiratory effort and clear to auscultation bilaterally Effort and Inspection: Negative for respiratory distress or pain with movement Auscultation: Negative for rhonchi, wheezes or diminished lung sounds Cardio regular rate, regular rhythm, S1 normal heart sound, S2 normal heart sound and no murmurs Peripheral Pulses: pulses 2+ throughout GI normal to inspection, nondistended, normoactive bowel sounds, soft to palpation, non-tender, non-distended and no masses Back/Spine no CVA tenderness and no thoracic nor lumbar tenderness Extremity Extremity Narrative: There is a small subtle infrapatellar effusion noted. Patient has some tenderness to the medial joint line. Normal in flexion extension of the knee. Patient did have laxity of the lateral collateral ligament on exam and there was a slight pop noted with stressing. Neurovascularly intact distally. General Extremety ED: Negative for edema General Extremity: Negative for edema Neuro oriented x3, CN's II-XII intact bilaterally, no sensory deficits noted and gait normal Sensorium / Orientation: awake, alert, oriented to person, oriented to place and oriented to time Motor Exam: strength 5/5 throughout and strength abnormal Psych mental status grossly normal Skin no rashes or lesions noted and no wounds MDM MDM MDM Narrative Medical decision making narrative: Patient will be placed in a knee immobilizer and given crutches. He is given referral to orthopedics for follow-up. Patient given a prescription for few [place] for pain. I suspect patient may have ligamentous injury with possible tear of his lateral collateral ligament. Patient understands he may need further imaging such as outpatient MRI to evaluate further. Radiography Diagnostic Testing: Clinical Impression(s) from Imaging Studies Knee X-Ray 08/28/21 12:15 IMPRESSION: Prepatellar soft tissue swelling. Electronically Signed: Kamari Bernal MD at 12:31 EST , Service support , 4 view x-rays of the left knee obtained interpreted by myself as no acute fractures or dislocations. Radiology was in agreement and felt that he had some prepatellar soft tissue swelling. Discharge Plan Triage Chief Complaint: Lower Extremity Injury ED Provider: Paula Macario Dx/Rx/DC Orders Clinical Impression: Left knee sprain Instructions: ED Meniscal Injury Knee Poss, ED Sprain Knee Collateral Ligaments Prescriptions: New hydrocodone-acetaminophen [hydrocodone-acetaminophen] 1 TABLET tablet 1 tab PO Q4H PRN PRN (Reason: Pain) 2 Days Qty: 10 RF: 0 naproxen 500 MG tablet 500 mg PO BID Qty: 14 RF: 0 No Action omeprazole 20 MG capsule 40 mg PO DAILY RF: 0 Primary Care Provider: Eric Evans Referrals: Eric Evans MD [Primary Care Provider] - Javier Mendez MD [STAFF PHYSICIAN] - 3-5 Days Disposition Disposition: Home, Self Care
--- NOTE | 2021-08-28 12:15 | RAD_ITS ---
STUDY: X-RAY - LEFT KNEE REASON FOR EXAM: Male, 26 years old. Pain following a twisting injury. TECHNIQUE: 4 view(s) of the knee. COMPARISON: None. FINDINGS: Normal visualized distal femur. Normal visualized proximal tibia and fibula. Normal proximal tibiofibular articulation. Normal medial femorotibial compartment. Normal lateral femorotibial compartment. Normal patellofemoral articulation. Prepatellar soft tissue swelling. RAD/Knee 4 or More Views IMPRESSION: Prepatellar soft tissue swelling. Electronically Signed: Kamari Bernal MD at 12:31 EST , Service support ,
[2021-08-28 13:22] VITALS: PULSE 130; RESP 16; O2SAT 97
--- NOTE | 2021-08-28 13:23 | ED.RN ---
REVIEWED D/C INSTRUCTIONS, FOLLOW UP CARE, PRESCRIPTIONS, AND S/S THAT WOULD WARRANT A RETURN TO THE ED WITH PT. PT VERBALIZED AN UNDERSTANDING AND DENIES FURTHER QUESTIONS FOR THIS RN. PT SKIN P/W/D, RESP EVEN AND UNLABORED, PT A&O X 3, NO DISTRESS NOTED. PT AMBULATED OUT OF ED USING CRUTCHES, GAIT STEADY.
== END 2021-08-28 13:24 | disposition home or self-care (01) ==
PROVIDERS: Emergency Provider Emergency Medicine; PCP Family Medicine
DX: S83.92XA Sprain of unspecified site of left knee, initial encounter (principal); W01.0XXA Fall on same level from slipping, tripping and stumbling without subsequent striking against object, initial encounter; X50.1XXA Overexertion from prolonged static or awkward postures, initial encounter; Y93.9 Activity, unspecified; Y92.9 Unspecified place or not applicable; Y99.9 Unspecified external cause status; Z87.891 Personal history of nicotine dependence
CPT/HCPCS: 73564; 99284

== ENCOUNTER 2021-12-08 23:08 | Emergency (ER) | payer MEDICAID, SELFPAY ==
[2021-12-08 23:09] VITALS: BP 181/105; PULSE 138; RESP 20; TEMP 36.4; BMI 24.8
--- NOTE | 2021-12-08 23:25 | RAD_ITS ---
STUDY: X-RAY - RIGHT HAND, ATTENTION FINGER REASON FOR EXAM: Male, 26 years old. Injury/Pain TECHNIQUE: 3 view(s) of the finger were obtained. COMPARISON: None. FINDINGS: Normal metacarpal head. Normal metacarpophalangeal joint. Normal proximal phalanx. Normal middle phalanx. Normal distal phalanx. Normal proximal interphalangeal joint. Normal distal interphalangeal joint. RAD/Finger(s) Min 2 Views IMPRESSION: Normal x-ray examination of the finger. Electronically Signed: Jayson Lopez MD at 23:52 EDT ,
--- NOTE | 2021-12-08 23:27 | EX.ED.UPPERE ---
HPI History of Present Illness Chief Complaint: Upper Extremity Injury Informant: patient Narrative Narrative: Patient is a 26-year-old male with history of GERD and tachycardia presenting with right finger injury. Patient states he was going to get his wallet out of his truck when his finger got stuck in the door. It is his right middle finger. He states it feels numb. Is significantly painful and bruised. He came to the emergency room for further evaluation. Patient does admit to drinking approximately 10 beers tonight. He states he does not usually drink that much except for about once a month. Patient does comment that he has a history of high heart rate but he is never had it evaluated because he does not currently have a primary care doctor. He states its been this way for some time now. Denies any chest pain. Denies any other complaints at this time. PFSH PFSH Home Medications omeprazole 40 mg PO DAILY 12/13/18 [History Last Taken 12/13/18] Allergy/AdvReac Type Severity Reaction Status Date / Time No Known Allergies Allergy Verified 08/28/21 12:15 Social History Smoking Status: Former smoker ROS ROS ED Constitutional Constitutional ED: Denies chills or fever(s) Eyes Eyes: Denies change in vision Cardiovascular Cardiovascular: Denies chest pain, palpitations or racing heartbeat Respiratory/Chest Respiratory/Chest: Denies cough or dyspnea Gastrointestinal Gastrointestinal: Denies nausea or vomiting Musculoskeletal Musculoskeletal: Reports other Details: right middle finger pain ; Denies myalgias or neck pain Integumentary Reports other Details: bruising right middle finger ; Denies rash Neurologic Neurologic: Reports paresthesias and other Details: right distal middle finger ; Denies headache(s) or weakness Psychiatric Psychiatric: Denies anxiety or depression Hematologic/Lymphatic Hematologic/Lymphatic: Denies easy bleeding or easy bruising EXAM Physical Exam Const Vital Signs: 12/08/21 23:09 Temperature 97.6 F L Temperature Source Temporal Pulse Rate 138 H Respiratory Rate 20 H Blood Pressure 181/105 H Blood Pressure Mean 130 Positive well nourished and well developed General Appearance ED: well developed and NAD HEENT normocephalic and atraumatic Eyes PERRL Neck full ROM and supple Chest Wall inspection of chest normal Resp normal respiratory effort Cardio regular rhythm Cardio Narrative: 2+ radial pulse Rate: tachycardic Extremity full ROM Extremity Narrative: Tenderness of the distal aspect of the right middle finger with bruising noted over the pad of the finger. Range of motion is preserved including the extensor mechanism of the finger. No obvious deformity. No other bony tenderness deformity/injury appreciated. General Extremety ED: Yes edema General Extremity: edema Neuro oriented x3, moves all extremities, no focal motor deficits and no sensory deficits noted Sensorium / Orientation: alert Psych mental status grossly normal Skin Skin Narrative: Punctate areas of ecchymosis over the pad of the right middle finger Lesions: no lesions Rashes: no rashes MDM MDM MDM Narrative Medical decision making narrative: Patient evaluated for injury to his right middle finger. He slammed in a car door. Vital signs are significant for hypertension tachycardia. Patient states he does have a history of resting tachycardia and heart he shows he has been tachycardic in the past. Admits to alcohol use tonight. He is acting appropriate. No obvious deformity or flexor tendon injury. No subungual hematoma appreciated. X-ray does not show any acute fracture. X-ray interpreted by myself as well as radiology. Patient will be discharged with rice therapy. Is given dose of Motrin in the ER. Is given a PCP for outpatient follow-up for tachycardia as well as for his finger injury. Discharge Plan Triage Chief Complaint: Upper Extremity Injury ED Provider: Savannah Galan Dx/Rx/DC Orders Clinical Impression: Crushing injury of right middle finger, initial encounter, Tachycardia Instructions: ED Crush Injury, Hand Prescriptions: No Action omeprazole 20 MG capsule 40 mg PO DAILY RF: 0 Primary Care Provider: Care Physician,No Primary Referrals: Edy Chavez MD [STAFF PHYSICIAN] - As Needed Care Physician,No Primary [Primary Care Provider] - Disposition Disposition: Home, Self Care Discharge Date/Time: 12/09/21 00:17
[2021-12-08] MEDS: Ibuprofen 600 MG Tablet PO (23:43)
[2021-12-09 00:16] VITALS: BP 151/75; PULSE 120; RESP 16; O2SAT 97
== END 2021-12-09 00:17 | disposition home or self-care (01) ==
PROVIDERS: Emergency Provider Emergency Medicine; Visit Provider Emergency Medicine
DX: S67.192A Crushing injury of right middle finger, initial encounter (principal); W23.0XXA Caught, crushed, jammed, or pinched between moving objects, initial encounter; R00.0 Tachycardia, unspecified; K21.9 Gastro-esophageal reflux disease without esophagitis; Z87.891 Personal history of nicotine dependence
CPT/HCPCS: 73140; 99282

== ENCOUNTER 2021-12-21 09:22 | Emergency (ER) | payer MEDICAID, SELFPAY ==
[2021-12-21 09:23] VITALS: BP 156/114; PULSE 151; RESP 16; TEMP 38.3; O2SAT 97; BMI 24.8
--- NOTE | 2021-12-21 09:49 | EKG12_ITS ---
Test Reason : TACHYCARDIA Blood Pressure : / mmHG Vent. Rate : 143 BPM Atrial Rate : 143 BPM P-R Int : 150 ms QRS Dur : 074 ms QT Int : 254 ms P-R-T Axes : 036 020 038 degrees QTc Int : 392 ms Sinus tachycardia consider Left ventricular hypertrophy Nonspecific T wave abnormality Abnormal ECG Confirmed by VANESSA MAGUIRE, MAYNOR ([id number]), editor house organ LITO KERNS ([id number]) on 12/24/2021 11:12:16 AM Referred By: LUIS ANTONIO Confirmed By:MAYNOR MENDEZ MD
[2021-12-21 09:50] VITALS: BP 168/94; PULSE 141; RESP 33; TEMP 38.3; O2SAT 97
[2021-12-21] MEDS: Acetaminophen 500 MG Tablet 1000 MG PO (09:56)
[2021-12-21] MEDS: Ketorolac 15 MG/ML Vial IV (09:56)
[2021-12-21] MEDS: 0.9% Normal Saline 1,000 ML 999 ML IV ×2 (09:56→11:26)
--- NOTE | 2021-12-21 10:07 | EX.ED.DYSGE1 ---
HPI <ETHEL Bishop - Last Filed: 12/21/21 11:27> History of Present Illness Chief Complaint: Fever Narrative Narrative: 26-year-old male with history of GERD, tachycardia presents to the emergency department with 4 days of generalized fever, sore throat, cough. Patient states that his daughter has a runny nose and does attend school, patient states that his symptoms began with a scratchy throat, progressed to a runny nose, now he has a cough as well as fever and chills. Patient states that the fever, chills, lethargy has been getting much worse over the last 48 hours. He states he has been unable to get out of bed, had decreased appetite, denies any nausea or vomiting however did have an episode of diarrhea. Patient denies any shortness of breath, chest pain. Denies any abdominal pain PFSH <ETHEL Bishop - Last Filed: 12/21/21 11:27> [facility] Medical History (Updated 12/21/21 @ 11:27 by ETHEL Bishop) Anxiety Home Medications omeprazole 40 mg PO DAILY 12/13/18 [History Last Taken 12/13/18] Allergy/AdvReac Type Severity Reaction Status Date / Time No Known Allergies Allergy Verified 12/21/21 09:22 Social History Smoking Status: Former smoker ROS <ETHEL Bishop - Last Filed: 12/21/21 11:27> ROS ED ROS Narrative Constitutional: Negative for weight loss or gain, weakness. Positive for fever and chills Eyes: Negative for vision loss, vision change, double vision ENT: Negative for any hearing changes, ringing in the ears, discharge, pain Nose: Negative for any sinus pain, allergies. Positive for runny nose, congestion Throat: Negative for any swelling, voice changes. Positive sore throat Cardiovascular: Negative for any chest pain, tightness, palpitations, racing heartbeat Respiratory: Negative for any sputum production, hemoptysis, shortness of breath, shortness of breath on exertion. Positive for dry cough Gastrointestinal: Negative for any abdominal pain, nausea, vomiting, diarrhea, constipation, blood in stool, blood in vomit : Negative for any urinary frequency, incontinence, dysuria, retention, blood in urine Muscle skeletal: Negative for any muscle joint pain, stiffness, myalgias, arthralgias, neck pain, back pain Neurological: Negative for any headache, dizziness, syncope, numbness or tingling Skin: Negative for any rashes, lumps, itching, abrasions, lacerations Psychiatric: Negative for any depression, anxiety, stress, suicidal ideation, homicidal ideation Hematologic: Negative for any easy bruising, excessive bruising, easy bleeding Allergies: Negative for any eczema, hives, rash EXAM <ETHEL Bishop - Last Filed: 12/21/21 11:27> Physical Exam Narrative Exam Narrative: Patient does appear fever, patient is tachycardic, febrile at 101 Fahrenheit. Const Vital Signs: 12/21/21 09:23 12/21/21 09:50 12/21/21 10:59 Temperature 101.0 F H 101.0 F H 100.1 F H Temperature Source Oral Oral Oral Pulse Rate 151 H 141 H 132 H Respiratory Rate 16 33 H 25 H Respiratory Effort Normal Respiratory Pattern Tachypnea Blood Pressure 156/114 H 168/94 H 153/92 H Blood Pressure Mean 128 118 112 Pulse Ox 97 97 97 Oxygen Delivery Method Room Air Room Air Room Air 12/21/21 11:26 12/21/21 12:06 Temperature 98.9 F Temperature Source Oral Pulse Rate 127 H 119 H Respiratory Rate 28 H 18 Respiratory Effort Respiratory Pattern Blood Pressure 143/79 H 140/76 H Blood Pressure Mean 100 Pulse Ox 97 96 Oxygen Delivery Method Room Air HEENT Reports TM's clear and dry mucous membranes Tympanic Membrane ED: Yes TM's clear Mouth ED: Yes dry mucous membranes Mouth: dry mucous membranes Eyes PERRL and EOMs intact bilaterally Neck no lymphadenopathy and supple Neck Narrative: Patient did have slight erythema to bilateral tonsils, possible exudate to the right tonsil however this could be saliva. Chest Wall inspection of chest normal and palpation of chest normal Resp normal respiratory effort and clear to auscultation bilaterally Cardio Cardio Narrative: Patient is tachycardic in the rate of 145, patient states that is normal heart rate is 130, he does have a physician who is supposed to assess this however he did not go to his appointment this last week due to being ill. Rate: tachycardic Extremity normal to inspection Neuro oriented x3 and CN's II-XII intact bilaterally Sensorium / Orientation: alert Motor Exam: strength 5/5 throughout Psych mental status grossly normal Skin Skin Narrative: Patient skin is warm to the touch, patient is flushed secondary to fever. <Dr. Paula Macario DO - Last Filed: 12/21/21 12:10> Physical Exam Const Vital Signs: 12/21/21 09:23 12/21/21 09:50 12/21/21 10:59 Temperature 101.0 F H 101.0 F H 100.1 F H Temperature Source Oral Oral Oral Pulse Rate 151 H 141 H 132 H Respiratory Rate 16 33 H 25 H Respiratory Effort Normal Respiratory Pattern Tachypnea Blood Pressure 156/114 H 168/94 H 153/92 H Blood Pressure Mean 128 118 112 Pulse Ox 97 97 97 Oxygen Delivery Method Room Air Room Air Room Air 12/21/21 11:26 12/21/21 12:06 Temperature 98.9 F Temperature Source Oral Pulse Rate 127 H 119 H Respiratory Rate 28 H 18 Respiratory Effort Respiratory Pattern Blood Pressure 143/79 H 140/76 H Blood Pressure Mean 100 Pulse Ox 97 96 Oxygen Delivery Method Room Air [facility] <ETHEL Bishop - Last Filed: 12/21/21 11:27> [facility] Narrative Medical decision making narrative: Patient appears to be in mild distress secondary to fever, patient's vital signs show tachycardia, febrile illness. Patient's physical examination is consistent with a viral illness however patient received laboratory studies, patient CBC showed a little bit of leukocytosis with a white blood count 11.6, patient's BMP did show a slight elevation in his glucose was 162, patient's lactic acid was 2.2. Patient did receive a chest x-ray which was read by the ER attending, this was negative for any acute process. Patient also had a negative COVID-19, flu, Streptococcus test. Patient did respond well to IV fluids, IV Toradol, Tylenol. Patient's heart rate was 151 and on reassessment was 132, patient state he is normally in the 130s and does have a doctor's appointment to evaluate his tachycardia. Patient's fever did decrease. Patient states that he is now sweating, I believe that he is under medicating himself for his fever at home. Patient will receive 1 more liter of fluid, and will be discharged home. Patient will follow up closely with his PCP instructed to return for any worsening symptoms. Patient be diagnosed with viral syndrome, at this time there is no evidence of any bacterial infection. Lab Data Labs: Laboratory Results - last 24 hr 12/21/21 12/21/21 12/21/21 09:55 09:55 09:55 WBC 11.6 H RBC 5.74 Hgb 14.5 Hct 45.5 MCV 79.3 L MCH 25.3 L MCHC 31.9 L RDW Std Deviation 44.1 H RDW Coeff of Mark 15.4 H Plt Count 213 MPV 10.0 Immature Gran % (Auto) 0.400 Neut % (Auto) 76.4 H Lymph % (Auto) 15.1 L [place] % (Auto) 7.7 Eos % (Auto) 0.2 Baso % (Auto) 0.2 Absolute Neuts (auto) 8.9 H Absolute Lymphs (auto) 1.76 Nucleated RBC % 0 Sodium 137 Potassium 4.1 Chloride 105 Carbon Dioxide 27.0 Anion Gap 5 BUN 9 Creatinine 0.74 Estim Creat Clear Calc 177.63 Est GFR (MDRD) Af Amer 162 Est GFR (MDRD) Non-Af 134 BUN/Creatinine Ratio 12.2 Glucose 162 H Lactic Acid 2.2 H* Calcium 8.8 Radiography Chest X-Ray - ED: 1 View Diagnostic Testing: Clinical Impression(s) from Imaging Studies Chest X-Ray 12/21/21 10:15 IMPRESSION: No demonstrated acute cardiopulmonary process. Electronically Signed: Leonor Almeida MD at 10:35 EDT Reading Location ID and State: [facility] / [place] Tel , Service support , <Dr. Paula Macario, DO - Last Filed: 12/21/21 12:10> [facility] Narrative Medical decision making narrative: I have personally performed a face to face assessment of the patient and have reviewed the HAROON Note. I performed a substantive portion of the visit including all aspects of the following. My fong findings include: History is [patient presents with complaint of a of fever and cough that started 3 days ago. Patient states his son also with cold-like symptoms. Patient denies any exposures to sick contacts otherwise or anybody with Covid. Patient states that he is immunized against COVID but has not had a booster. Patient also states that he started having diarrhea yesterday. Anytime he tries to eat or drink he has watery stools. He denies vomiting. He denies abdominal pain. Cough is mostly nonproductive.] Exam is [HEENT-PERRLA, EOMI. Cranial nerves II through XII grossly intact. TMs clear. Mucous membranes moist. No adenopathy. Cardiovascular-regular rate and rhythm without murmur or ectopy. Patient is tachycardic with heart rate in the 140s. Lungs-clear to auscultation, chest wall stable without crepitus or subcu emphysema Abdomen-normoactive bowel sounds, soft, nontender, no rebound or rigidity, no peritoneal signs. Extremities-intact ?4, normal range of motion, normal pulses, atraumatic] Medical Decison Making [IV line established on arrival. Patient was given a liter normal same fluid bolus followed by second liter. His tachycardia did improve to his baseline. Patient I suspect likely has a viral syndrome. Patient son also ill at home. I do not feel antibiotics are indicated at this time. Patient advised to push fluids. Patient to follow-up with primary care physician in 3 to 5 days.] Other additions or changes: [None] Lab Data Attestation: I reviewed the patient's lab results. Labs: Laboratory Results - last 24 hr 12/21/21 12/21/21 12/21/21 09:55 09:55 09:55 WBC 11.6 H RBC 5.74 Hgb 14.5 Hct 45.5 MCV 79.3 L MCH 25.3 L MCHC 31.9 L RDW Std Deviation 44.1 H RDW Coeff of Mark 15.4 H Plt Count 213 MPV 10.0 Immature Gran % (Auto) 0.400 Neut % (Auto) 76.4 H Lymph % (Auto) 15.1 L [place] % (Auto) 7.7 Eos % (Auto) 0.2 Baso % (Auto) 0.2 Absolute Neuts (auto) 8.9 H Absolute Lymphs (auto) 1.76 Nucleated RBC % 0 Sodium 137 Potassium 4.1 Chloride 105 Carbon Dioxide 27.0 Anion Gap 5 BUN 9 Creatinine 0.74 Estim Creat Clear Calc 177.63 Est GFR (MDRD) Af Amer 162 Est GFR (MDRD) Non-Af 134 BUN/Creatinine Ratio 12.2 Glucose 162 H Lactic Acid 2.2 H* Calcium 8.8 Radiography Diagnostic Testing: Clinical Impression(s) from Imaging Studies Chest X-Ray 12/21/21 10:15 IMPRESSION: No demonstrated acute cardiopulmonary process. Electronically Signed: Leonor Almeida MD at 10:35 EDT , 1 view chest x-ray obtained interpreted by myself no acute disease process. Radiology in agreement. EKG Initial EKG: Attestation: I personally reviewed and interpreted this EKG as follows: Comments: Sinus rhythm with a rate in the 140s with no acute ST segment changes Discharge Plan Triage Chief Complaint: Fever ED Midlevel Provider: Edy Palma ED Provider: Paula Macario Dx/Rx/DC Orders Clinical Impression: Viral syndrome Instructions: ED Viral Syndrome (Adult) Prescriptions: No Action omeprazole 20 MG capsule 40 mg PO DAILY RF: 0 Stand Alone Forms: ED Work / School Excuse Primary Care Provider: Care Physician,No Primary Referrals: Yolanda Velasquez MD [STAFF PHYSICIAN] - 3-5 Days Care Physician,No Primary [Primary Care Provider] - Activity Restrictions/Additional Instructions: Please use ibuprofen, Tylenol together, please maintain your hydration. Print Language: [place]an Disposition Disposition: Home, Self Care
[2021-12-21 10:13] LABS: Absolute Lymphocyte Count 1.76 X10^3/uL (0.83-4.51); Absolute Neutrophil Count 8.9 X10^3/uL (2.0-7.7); Basophil# 0.02 X10^3/uL; Basophil% 0.2 % (0-1); Eosinophil# 0.02 X10^3/uL; Eosinophils% 0.2 % (0-5); Hematocrit 45.5 % (40-54); Hemoglobin 14.5 g/dL (13.0-16.5); Lymphocyte # 1.76 X10^3/ul (0.83-4.51); Lymphocyte % 15.1 % (19-41); Mean Corp Hgb Conc 31.9 g/dL (32-36); Mean Corpuscular Hgb 25.3 pg (27.0-32.0); Mean Corpuscular Volume 79.3 fL (80-94); Monocyte% 7.7 % (0-10); NRBC Flagged by Analyzer 0 % (0-5); Neutrophil # 8.88 X10^3/uL (2.7-7.7); Neutrophil % 76.4 % (47-70); Platelet Count 213 K/mm3 (150-450); RBC Distribution Width CV 15.4 % (11.6-14.6); RBC Distribution Width SD 44.1 fl (35.1-43.9); Red Blood Count 5.74 M/mm3 (4.6-6.2); White Blood Count 11.6 K/mm3 (4.4-11.0)
--- NOTE | 2021-12-21 10:15 | RAD_ITS ---
STUDY: X-RAY CHEST REASON FOR EXAM: Male, 26 years old. Cough TECHNIQUE: PA and lateral views of the chest. COMPARISON: June 29, 2019 chest x-ray FINDINGS: The lungs are clear and expanded. There is no demonstrated pleural abnormality. Normal size heart. Normal mediastinum and aminata. Normal visualized pulmonary arteries. There is atherosclerotic tortuosity of the aortic arch and descending thoracic aorta. There are diffuse degenerative changes of the visualized thoracic spine. Normal visualized ribs, clavicles, and shoulders. There is no demonstrated abnormality of the visualized soft tissue structures of the upper abdomen. RAD/Chest PA and Lateral IMPRESSION: No demonstrated acute cardiopulmonary process. Electronically Signed: Leonor Almeida MD at 10:35 EDT ,
[2021-12-21 10:29] LABS: Anion Gap 5 (5-15); BUN 9 mg/dL (7-18); BUN/Creat Ratio 12.2 RATIO (10-20); Calcium,Total 8.8 mg/dL (8.5-10.1); Chloride 105 mmol/L (98-107); Creatinine, Serum 0.74 mg/dL (0.70-1.30); EST Glomerular Filtration Rate 134 mL/min (>60); Est Glom Filt Rate - Afr Amer 162 mL/min (>60); Estimated Creatinine Clearance 177.63 ml/min; Glucose 162 mg/dL (74-106); Potassium 4.1 mmol/L (3.5-5.1); Sodium Level 137 mmol/L (136-145)
[2021-12-21 10:56] LABS: Lactic Acid 2.2 mmol/L (0.4-1.9)
[2021-12-21 10:59] VITALS: BP 153/92; PULSE 132; RESP 25; TEMP 37.8; O2SAT 97
--- NOTE | 2021-12-21 10:59 | NURSING ---
call from lab , lactic acid 2.2 dr. he aware
[2021-12-21 11:26] VITALS: BP 143/79; PULSE 127; RESP 28; TEMP 37.2; O2SAT 97
[2021-12-21 12:06] VITALS: BP 140/76; PULSE 119; RESP 18; O2SAT 96
== END 2021-12-21 12:10 | disposition home or self-care (01) ==
PROVIDERS: Nurse Practitioner; Emergency Provider Emergency Medicine; Visit Provider Emergency Medicine
DX: B34.9 Viral infection, unspecified (principal); R19.7 Diarrhea, unspecified; Z20.822 Contact with and (suspected) exposure to COVID-19; K21.9 Gastro-esophageal reflux disease without esophagitis; Z79.899 Other long term (current) drug therapy; Z87.891 Personal history of nicotine dependence
CPT/HCPCS: 71046; 80048; 83605; 85025; 87428; 87880; 93005; 96361; 96374; 99285; J7030; A4216

== ENCOUNTER 2022-05-24 12:09 | Emergency (ER) | payer MEDICAID, SELFPAY ==
[2022-05-24 12:10] VITALS: BP 151/98; PULSE 128; RESP 17; TEMP 36.3; O2SAT 98; BMI 22.6
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
[2022-05-24 12:50] VITALS: PULSE 104; RESP 17; O2SAT 95
== END 2022-05-24 12:51 | disposition home or self-care (01) ==
LOC: ED 12:36
PROVIDERS: Emergency Provider Emergency Medicine; Visit Provider Emergency Medicine
DX: S29.019A Strain of muscle and tendon of unspecified wall of thorax, initial encounter (principal); S29.012A Strain of muscle and tendon of back wall of thorax, initial encounter; Z87.891 Personal history of nicotine dependence; V89.2XXA Person injured in unspecified motor-vehicle accident, traffic, initial encounter
CPT/HCPCS: 99282

== ENCOUNTER 2022-08-22 20:37 | Emergency (ER) | payer MEDICAID, SELFPAY ==
[2022-08-22 20:40] VITALS: BP 147/95; PULSE 147; RESP 16; TEMP 36.6; O2SAT 97; BMI 25.6
[2022-08-22 20:43] VITALS: BP 147/95; PULSE 147; RESP 16; TEMP 36.6; O2SAT 97
--- NOTE | 2022-08-22 20:56 | EX.ED.DYSGE1 ---
HPI History of Present Illness Chief Complaint: General Illness Detail of Chief Complaint: Sore throat, puncture wound to foot Informant: patient Narrative Narrative: Patient presents requesting a tetanus update as he stepped on a thumbtack tonight. Went through his sock into his heel. He pulled it out and wash the area. He is unsure of his last tetanus update but does believe is been within 5 years. He also complains of pain to the right side of his tongue with a sore throat. He states he has trouble swallowing and eating because of the pain on his tongue. He has had a mild cough. No fevers been noted. [facility] Medical History Anxiety GERD (gastroesophageal reflux disease) Tachycardia Home Medications NK 08/22/22 [History Last Taken Unknown] Allergy/AdvReac Type Severity Reaction Status Date / Time No Known Allergies Allergy Verified 12/21/21 09:22 Social History Smoking Status: Former smoker alcohol intake: current substance use type: does not use ROS ROS ED Constitutional Constitutional ED: Denies chills or fever(s) Eyes Eyes: Denies change in vision or discharge from eye(s) ENT ENT ED: Reports sore throat; Denies discharge from eye(s) or rhinorrhea Cardiovascular Cardiovascular: Denies chest pain or palpitations Respiratory/Chest Respiratory/Chest: Reports cough; Denies dyspnea Gastrointestinal Gastrointestinal: Denies abdominal pain, diarrhea, nausea or vomiting Genitourinary Genitourinary ED: Denies difficulty urinating or dysuria Musculoskeletal Musculoskeletal: Reports extremity pain; Denies back pain Integumentary Denies Abrasions or rash Neurologic Neurologic: Denies headache(s) or weakness Allergic/Immunologic Allergic/Immunologic ED: Denies lip swelling or urticaria EXAM Physical Exam Narrative Exam Narrative: Patient sitting in bed with head of bed elevated approximate 45 degrees. Patient tolerating secretions well and has a strong voice. Const Vital Signs: 08/22/22 20:40 08/22/22 20:43 Temperature 97.8 F 97.8 F Temperature Source Temporal Temporal Pulse Rate 147 H 147 H Respiratory Rate 16 16 Blood Pressure 147/95 H 147/95 H Blood Pressure Mean 112 112 Pulse Ox 97 97 Oxygen Delivery Method Room Air Room Air Positive well nourished and well developed General Appearance ED: well developed HEENT Reports normocephalic and head/scalp atraumatic HEENT Narrative: 2-3+ tonsils with exudate noted on the left. Uvula is midline. Eyes PERRL and EOMs intact bilaterally Neck supple Lymph Lymphatic Narrative: Mild cervical lymphadenopathy. Chest Wall inspection of chest normal and palpation of chest normal Resp normal respiratory effort and clear to auscultation bilaterally Cardio regular rhythm Rate: tachycardic GI normal to inspection, nondistended, normoactive bowel sounds Palpation: soft Extremity Extremity Narrative: Small puncture wound noted to the heel of the right foot. Area is nontender. No surrounding erythema or edema. Neuro oriented x3 and no sensory deficits noted Sensorium / Orientation: alert Motor Exam: strength 5/5 throughout Psych mental status grossly normal Skin Skin Narrative: Puncture wound as noted above. MDM MDM MDM Narrative Medical decision making narrative: Tetanus update given. Swabs for COVID, influenza, rapid strep obtained. Treatment and Re-Evaluation Narrative: COVID, influenza, and strep are all negative. Patient's heart rate is currently 117. He states his normal heart rate is around 130. Encouraged to continue supportive care with Tylenol and ibuprofen. Increase p.o. fluids. Return instructions given. Discharge Plan Triage Chief Complaint: General Illness ED Provider: Erin Sarmiento Dx/Rx/DC Orders Clinical Impression: Puncture wound of foot, Viral pharyngitis Instructions: ED Puncture Wound (Foot), ED Pharyngitis, Viral Prescriptions: No Action NK Primary Care Provider: Care Physician,No Primary Referrals: Tee Nash MD [Med Staff - Analytical Chemist] - As Needed Care Physician,No Primary [Primary Care Provider] - Disposition Disposition: Home, Self Care
[2022-08-22] MEDS: Diphth,Pertuss(Acell),Tet Vac 0.5 ML Vial IM (21:17)
[2022-08-22 22:50] VITALS: PULSE 114; O2SAT 98
== END 2022-08-22 22:55 | disposition home or self-care (01) ==
PROVIDERS: Emergency Provider Emergency Medicine; Visit Provider Emergency Medicine
DX: S91.339A Puncture wound without foreign body, unspecified foot, initial encounter (principal); Z87.891 Personal history of nicotine dependence; R05.9 Cough, unspecified; W22.8XXA Striking against or struck by other objects, initial encounter; J02.8 Acute pharyngitis due to other specified organisms
CPT/HCPCS: 87077; 87428; 87880; 90471; 90715; 99282

== ENCOUNTER 2022-08-24 02:07 | Emergency (ER) | payer MEDICAID, SELFPAY ==
[2022-08-24 02:08] VITALS: BP 152/94; PULSE 100; RESP 16; TEMP 36.2; O2SAT 98; BMI 25.2
--- NOTE | 2022-08-24 02:20 | EDS_ITS ---
HPI History of Present Illness Chief Complaint: Dental Narrative Narrative: Patient is a 27-year-old male who states that he was eating a cookie earlier. He states that he felt like a piece got stuck in his right tooth/lower jaw. He states he has been digging at it and has not been able to remove the food object and now he has been having increased pain and therefore comes in for evaluation. [facility] Medical History Anxiety GERD (gastroesophageal reflux disease) Tachycardia Home Medications NK 08/22/22 [History Last Taken Unknown] Allergy/AdvReac Type Severity Reaction Status Date / Time No Known Allergies Allergy Verified 12/21/21 09:22 Social History Smoking Status: Former smoker alcohol intake: current substance use type: does not use ROS ROS ED Constitutional Constitutional ED: Denies chills or fever(s) ENT ENT ED: Reports other Details: Positive dental pain ; Denies sore throat Cardiovascular Cardiovascular: Denies chest pain Respiratory/Chest Respiratory/Chest: Denies cough or dyspnea Gastrointestinal Gastrointestinal: Denies abdominal pain, diarrhea, nausea or vomiting Genitourinary Genitourinary ED: Denies dysuria Musculoskeletal Musculoskeletal: Denies myalgias Integumentary Denies rash Neurologic Neurologic: Denies headache(s) Hematologic/Lymphatic Hematologic/Lymphatic: Denies easy bleeding or easy bruising EXAM Physical Exam Const Vital Signs: 08/24/22 02:08 Temperature 97.1 F L Temperature Source Temporal Pulse Rate 100 Respiratory Rate 16 Blood Pressure 152/94 H Blood Pressure Mean 113 Pulse Ox 98 Oxygen Delivery Method Room Air Positive well nourished and well developed General Appearance ED: well developed HEENT Reports moist mucous membranes HEENT Narrative: Patient has dental caries noted without acute dental fracture or abscess formation. There is mild erythema noted along the right lower jawline without abscess formation or foreign body noted. No airway edema or compromise Eyes PERRL and EOMs intact bilaterally Neck supple Neck Narrative: No brawny edema in the submental space to suggest Conrado's angina Resp normal respiratory effort and clear to auscultation bilaterally Cardio regular rate and regular rhythm Extremity normal to inspection Neuro oriented x3 and CN's II-XII intact bilaterally Sensorium / Orientation: alert Psych mental status grossly normal Skin no rashes or lesions noted MDM MDM MDM Narrative Medical decision making narrative: Patient presented to the ER afebrile. Exam does not show any retained foreign body or obvious dental abscess. There are no soft tissue changes to suggest Conrado's angina or ANUG. I feel the patient has mild gingivitis which was aggravated by scraping the jaw with the food particle as well as his hand. He was advised he needs to perform salt water gargles and brush his teeth and follow-up with dentist for further evaluation but at this time as there is no retained foreign body or obvious infectious process he does not need antibiotics or further work-up Discharge Plan Triage Chief Complaint: Dental ED Provider: Fuentes Quiroga Dx/Rx/DC Orders Clinical Impression: Pain, dental, Gingivitis Instructions: Understanding Gingivitis, ED Dental Pain Prescriptions: No Action NK Primary Care Provider: Care Physician,No Primary Referrals: Care Physician,No Primary [Primary Care Provider] - Activity Restrictions/Additional Instructions: Your exam today shows irritation/inflammation to the right lower gumline/gingiva. There is no obvious foreign body or dental abscess noted. Please use salt water gargles to help relieve the inflammation and continue with Tylenol or Motrin for pain control. If you develop a fever over 100.4 or notice facial swelling please return to the ER for repeat evaluation. Otherwise follow-up with your dentist for further evaluation Disposition Disposition: Home, Self Care Discharge Date/Time: 08/24/22 02:39
== END 2022-08-24 02:39 | disposition home or self-care (01) ==
PROVIDERS: Emergency Provider Emergency Medicine; Visit Provider Emergency Medicine
DX: K08.89 Other specified disorders of teeth and supporting structures (principal); Z87.891 Personal history of nicotine dependence; K05.10 Chronic gingivitis, plaque induced
CPT/HCPCS: 99282

== ENCOUNTER 2022-09-07 12:07 | Emergency (ER) | payer MEDICAID, SELFPAY ==
[2022-09-07 12:07] VITALS: BP 160/106; PULSE 153; RESP 16; TEMP 36.1; O2SAT 98; BMI 24.2
--- NOTE | 2022-09-07 12:22 | EX.ED.VIS.UR ---
HPI HPI - URI History of Present Illness Chief Complaint: Sore Throat Narrative Narrative: 27-year-old male who denies significant past medical history presents with sore throat and a dyne aphasia that he has had since . He states on , 4 days ago, his throat started hurting him. Last night he noticed that his tonsils were swollen and the back of his throat was red. He states he has pain when he swallows. He is nauseated but has not vomited. He has had p.o. intake that is decreased secondary to his pain. He is not a smoker. He denies any fevers or chills. No cough. ROS ROS ED ROS Narrative Constitutional: No fever, no chills. HEENT: Positive sore throat. No neck pain. No loss of vision. No rhinorrhea. Pain with swallowing. Cardiovascular: No chest pain. No palpitations. No pedal edema. Respiratory: No cough, no shortness of breath. Abdominal: No abdominal pain. Positive nausea. No vomiting. Genitourinary: No dysuria. No hematuria. Musculoskeletal: No myalgias. No arthralgias. Neurologic: No headaches. No dizziness. No lightheadedness. Skin: No rash. No change in color. Psychiatric: No depression. No anxiety. [facility] Medical History Anxiety GERD (gastroesophageal reflux disease) Tachycardia Home Medications amoxicillin 500 mg capsule 500 mg PO BID #20 caps 09/07/22 [Rx Last Taken Unknown] Allergy/AdvReac Type Severity Reaction Status Date / Time No Known Allergies Allergy Verified 12/21/21 09:22 Social History Smoking Status: Current every day smoker tobacco type: cigarettes alcohol intake: current substance use type: does not use EXAM Physical Exam Narrative Exam Narrative: Afebrile. Vital signs noted. Nontoxic-appearing. HEENT: Normocephalic. Atraumatic. PERRL, EOMI. Neck soft and supple. No point tenderness or step off. Positive cervical lymphadenopathy. Inspection of the pharynx reveals beefy red tonsils that are mildly enlarged. Airway is patent. No drooling or trismus. Exudative tonsillitis present. No meningismus. Cardiovascular: Positive tachycardia. No murmurs, rubs, or gallops appreciated. Respiratory: No tachypnea. Lungs clear to auscultation bilaterally. Gastrointestinal: Abdomen soft, nontender, with normoactive bowel sounds. No rebound or guarding. Neurological: Awake. Alert. Nonfocal, nonlateralizing. Skin: No rash. Normal color. No pallor. Musculoskeletal: No pedal edema. Full range of motion extremities. Const Vital Signs: 09/07/22 12:07 Temperature 96.9 F L Temperature Source Temporal Pulse Rate 153 H Respiratory Rate 16 Blood Pressure 160/106 H Blood Pressure Mean 124 Pulse Ox 98 Oxygen Delivery Method Room Air MDM MDM MDM Narrative Medical decision making narrative: Patient will be treated as presumed strep pharyngitis. He was told to drink plenty of fluids. He was given IV Decadron orally and his first dose of antibiotic. Prescription was written for amoxicillin to take for the next 10 days. Return instructions were reviewed. Pulse ox is 98% on room air without evidence of hypoxia. I feel he can be discharged safely home with follow-up. Disposition is discharged home in stable condition. Discharge Plan Triage Chief Complaint: Sore Throat ED Provider: Cristopher Harmon Dx/Rx/DC Orders Clinical Impression: Acute streptococcal tonsillitis, Pharyngitis Instructions: ED Pharyngitis, Strep (Presumed), ED Tonsillitis Prescriptions: New amoxicillin 500 mg capsule 500 mg PO BID Qty: 20 0RF Primary Care Provider: Care Physician,No Primary Referrals: Karishma Crook DO [Med Staff - Travel Specialist] - 3-5 Days if not improving Care Physician,No Primary [Primary Care Provider] - Disposition Disposition: Home, Self Care
[2022-09-07] MEDS: dexAMETHasone 10 MG/ML Vial 8 MG PO.IVFORM (12:30)
[2022-09-07] MEDS: AMOXICILLIN 500 MG CAPSULE PO (12:30)
== END 2022-09-07 12:36 | disposition home or self-care (01) ==
LOC: ED 12:24
PROVIDERS: Emergency Provider Emergency Medicine; Visit Provider Emergency Medicine
DX: J03.00 Acute streptococcal tonsillitis, unspecified (principal); R11.0 Nausea; K21.9 Gastro-esophageal reflux disease without esophagitis; F41.9 Anxiety disorder, unspecified; F17.210 Nicotine dependence, cigarettes, uncomplicated; Z79.899 Other long term (current) drug therapy
CPT/HCPCS: 99283

== ENCOUNTER 2022-10-06 12:17 | Emergency (ER) | payer MEDICAID, SELFPAY ==
[2022-10-06 12:18] VITALS: BP 150/97; PULSE 105; RESP 16; TEMP 36.6; O2SAT 100; BMI 26.2
--- NOTE | 2022-10-06 12:56 | EX.ED.VIS.EY ---
HPI History of Present Illness Chief Complaint: Eye Problem Detail of Chief Complaint: Right eye pain Informant: patient Narrative Narrative: Patient presents with right eye pain that started 5 days ago. Patient states he woke up with discomfort and feeling like his eye was swollen on the inside. Patient denies any trauma to the eye. Denies foreign body sensation. Denies photophobia. Patient states at times he had some difficulty with some blurred vision. He denies recent illness. Prior similar symptoms: No PFSH PFSH Medical History Anxiety GERD (gastroesophageal reflux disease) Tachycardia Home Medications moxifloxacin 0.5 % eye drops 1 drp EACH EYE TID 7 days #3 mL 10/06/22 [Rx Last Taken Unknown] Allergy/AdvReac Type Severity Reaction Status Date / Time No Known Allergies Allergy Verified 10/06/22 12:28 Social History Smoking Status: Current every day smoker tobacco type: cigarettes alcohol intake: current substance use type: does not use ROS ROS ED Review of Systems ROS Unobtainable: other Constitutional Constitutional ED: Reports lethargy; Denies chills, fever(s), sweats or weight loss Eyes Eyes: Reports change in vision and other Details: Right eye pain ; Denies blurry vision or diplopia ENT ENT ED: Denies rhinorrhea or sore throat Cardiovascular Cardiovascular: Denies chest pain, orthopnea or racing heartbeat Respiratory/Chest Respiratory/Chest: Denies cough, dyspnea, dyspnea on exertion, orthopnea or sputum Gastrointestinal Gastrointestinal: Denies abdominal pain, diarrhea, nausea or vomiting Genitourinary Genitourinary ED: Denies dysuria, hematuria or urinary frequency Musculoskeletal Musculoskeletal: Denies arthralgias, back pain, myalgias or neck pain Integumentary Denies abscess, Abrasions or rash Neurologic Neurologic: Denies headache(s) or weakness Psychiatric Psychiatric: Denies anxiety, depression or suicidal thoughts Endocrine Endocrinology: Denies polydipsia, polyphagia or polyuria Hematologic/Lymphatic Hematologic/Lymphatic: Denies easy bleeding, easy bruising or lymphadenopathy Allergic/Immunologic Allergic/Immunologic ED: Denies mouth swelling, tongue swelling or urticaria EXAM Physical Exam Const Vital Signs: 10/06/22 12:18 Temperature 97.8 F Temperature Source Temporal Pulse Rate 105 H Respiratory Rate 16 Blood Pressure 150/97 H Blood Pressure Mean 114 Pulse Ox 100 Oxygen Delivery Method Room Air Positive well nourished and well developed General Appearance ED: well developed and NAD HEENT Reports TM's clear and moist mucous membranes HEENT Narrative: Right-eyelids appear normal. No foreign bodies noted and eyelids were everted no foreign body seen. Pupils equal react light bilaterally. Extraocular muscle movement is normal. Conjunctiva slightly erythematous medial portion of the globe. Patient with some mild tenderness palpation over the medial globe. No drainage noted. normocephalic and atraumatic; Negative for trauma or tenderness Tympanic Membrane ED: Yes TM's clear Eyes PERRL and EOMs intact bilaterally General Eye ED: Negative for pale conjunctiva or scleral icterus Neck no lymphadenopathy, supple and no JVD General: Negative for tenderness Chest Wall inspection of chest normal and palpation of chest normal Chest: Negative for tenderness Resp normal respiratory effort and clear to auscultation bilaterally Effort and Inspection: Negative for respiratory distress or pain with movement Auscultation: Negative for rhonchi, wheezes or diminished lung sounds Cardio regular rate, regular rhythm, S1 normal heart sound, S2 normal heart sound and no murmurs Peripheral Pulses: pulses 2+ throughout GI normal to inspection, nondistended, normoactive bowel sounds, soft to palpation, non-tender, non-distended and no masses Back/Spine no CVA tenderness and no thoracic nor lumbar tenderness Extremity normal to inspection General Extremety ED: Negative for edema General Extremity: Negative for edema Neuro oriented x3, CN's II-XII intact bilaterally, no sensory deficits noted and gait normal Sensorium / Orientation: awake, alert, oriented to person, oriented to place and oriented to time Motor Exam: strength 5/5 throughout and strength abnormal Psych mental status grossly normal Skin no rashes or lesions noted and no wounds MDM MDM MDM Narrative Medical decision making narrative: Patient had tetracaine applied to the right eye. Eyelids were everted and there was no foreign bodies noted. Eye was stained with foreseen and there is no evidence of uptake or foreign body. Eye pressure was checked of the right eye was 18. Patient had visual acuity prior to evaluation of his eye and his right eye was 20/30 5 and his left eye was 20/70. I discussed case with senior pl sql developer on-call Dr. Munguia. He asked that I start patient on moxifloxacin and he can see him later this afternoon in [place] or tomorrow morning for further evaluation. This point etiology of his eye pain is unclear. Suspect possibility of an infectious etiology given the inner erythema of the medial portion of the conjunctiva. Patient discharged to home in stable condition. Discharge Plan Triage Chief Complaint: Eye Problem ED Provider: Paula Macario Dx/Rx/DC Orders Clinical Impression: Acute eye pain, Conjunctivitis Instructions: Red Eye Infection Tx, ED Conjunctivitis, Nonspecific, ED Pain, Acute, Uncertain Cause Prescriptions: New moxifloxacin 0.5 % drops 1 drp EACH EYE TID 7 Days Qty: 3 0RF Primary Care Provider: Care Physician,No Primary Referrals: Care Physician,No Primary [Primary Care Provider] - Disposition Disposition: Home, Self Care
[2022-10-06] MEDS: Tetracaine 0.5% Ophthalmic Bottle 1 DRP RIGHT EYE (13:40)
[2022-10-06 14:28] VITALS: RESP 16
== END 2022-10-06 14:33 | disposition home or self-care (01) ==
PROVIDERS: Emergency Provider Emergency Medicine; Visit Provider Emergency Medicine
DX: H57.11 Ocular pain, right eye (principal); H10.9 Unspecified conjunctivitis; F17.210 Nicotine dependence, cigarettes, uncomplicated
CPT/HCPCS: 99283

== ENCOUNTER 2022-11-18 20:04 | Emergency (ER) | payer MEDICAID, SELFPAY ==
[2022-11-18 20:05] VITALS: BP 152/82; PULSE 123; RESP 15; TEMP 37.2; O2SAT 97; BMI 26.5
[2022-11-18 20:22] VITALS: BP 152/82; PULSE 123; RESP 15; TEMP 37.2; O2SAT 97
[2022-11-18 20:54] LABS: Absolute Lymphocyte Count 2.91 X10^3/uL (0.83-4.51); Absolute Neutrophil Count 1.6 X10^3/uL (2.0-7.7); Basophil# 0.01 X10^3/uL; Basophil% 0.2 % (0-1); Eosinophil# 0.07 X10^3/uL; Eosinophils% 1.4 % (0-5); Hematocrit 43.7 % (40-54); Hemoglobin 13.5 g/dL (13.0-16.5); Lymphocyte # 2.91 X10^3/ul (0.83-4.51); Lymphocyte % 57.4 % (19-41); Mean Corp Hgb Conc 30.9 g/dL (32-36); Mean Corpuscular Hgb 24.7 pg (27.0-32.0); Mean Platelet Vol. 10.1 fl (6.2-12.0); Monocyte# 0.52 X10^3/uL; Monocyte% 10.3 % (0-10); NRBC Flagged by Analyzer 0 % (0-5); Neutrophil # 1.55 X10^3/uL (2.7-7.7); Neutrophil % 30.5 % (47-70); Platelet Count 215 K/mm3 (150-450); RBC Distribution Width CV 15.3 % (11.6-14.6); RBC Distribution Width SD 44.1 fl (35.1-43.9); Red Blood Count 5.46 M/mm3 (4.6-6.2); White Blood Count 5.1 K/mm3 (4.4-11.0)
--- NOTE | 2022-11-18 21:04 | EX.ED.DYSGE1 ---
HPI History of Present Illness Chief Complaint: Abd Pain Narrative Narrative: Patient presents with nausea vomiting and diarrhea. He has 7 or 8 episodes of watery diarrhea and abdominal cramping. He also had 2 episodes of vomiting. No fevers or chills, he has no back pain or tearing sensation no urinary symptoms no CVA tenderness. Pain is diffuse and not localized [facility] Medical History Anxiety GERD (gastroesophageal reflux disease) Tachycardia Home Medications moxifloxacin 0.5 % eye drops 1 drp EACH EYE TID 7 days #3 mL 10/06/22 [Rx Last Taken Unknown] dicyclomine 20 mg tablet 20 mg PO BID #10 tabs 11/18/22 [Rx Last Taken Unknown] ondansetron 4 mg disintegrating tablet 4 mg PO Q8H PRN PRN Nausea #10 tabs 11/18/22 [Rx Last Taken Unknown] Allergy/AdvReac Type Severity Reaction Status Date / Time No Known Allergies Allergy Verified 11/18/22 20:09 Social History Smoking Status: Current every day smoker tobacco type: cigarettes alcohol intake: current substance use type: does not use ROS ROS ED ROS Narrative Past medical history: Reviewed Medications: Reviewed Social history: Noncontributory Review of systems: All systems negative except as indicated General: No fever. He feels somewhat lightheaded standing up Eyes: No visual changes ENT: No upper airway congestion, normal voice Neck: No neck pain Cardiovascular: No chest pain Respiratory: No shortness of breath or cough Gastrointestinal: As in HPI Genitourinary: No dysuria Musculoskeletal: Denies myalgias no difficulty with ambulation Skin: No rash EXAM Physical Exam Narrative Exam Narrative: Physical exam General: Well nourished, Well developed, No Acute Distress Head: Normocephalic, Atraumatic Eyes: Conjunctiva not pale ENT: Somewhat dry mucous membranes Neck: Supple, Nontender, No lymphadenopathy Cardiovascular: Regular rate, Regular rhythm Respiratory: No distress, CTA bilaterally Abdomen: Soft, generalized tenderness throughout the whole entire abdomen, no guarding or rebound. No specific pain at McBurney's. Negative Emmanuel sign. Quite benign abdominal exam. Back: Nontender, Normal Inspection. Negative for: CVA tenderness Extremities: Nontender, No edema Skin: Normal color, No rash Const Vital Signs: 11/18/22 20:05 11/18/22 20:22 Temperature 98.9 F 98.9 F Temperature Source Temporal Temporal Pulse Rate 123 H 123 H Respiratory Rate 15 15 Blood Pressure 152/82 H 152/82 H Blood Pressure Mean 105 105 Pulse Ox 97 97 Oxygen Delivery Method Room Air Room Air MDM MDM MDM Narrative Medical decision making narrative: A. Problems addressed patient has nausea vomiting diarrhea and some abdominal cramping is significantly improved after IV fluids and Bentyl. Heart rate also improved. He has a normal white count he has a benign abdomen I thought about a CT however signs and symptoms are likely consistent with a gastroenteritis. There is no evidence of pancreatitis and believe that I thought about this. I do not believe the patient has appendicitis. Patient will be discharged in stable condition Lab Data Labs: Laboratory Results - last 24 hr 11/18/22 11/18/22 20:48 20:48 WBC 5.1 RBC 5.46 Hgb 13.5 Hct 43.7 MCV 80.0 MCH 24.7 L MCHC 30.9 L RDW Std Deviation 44.1 H RDW Coeff of Mark 15.3 H Plt Count 215 MPV 10.1 Immature Gran % (Auto) 0.200 Neut % (Auto) 30.5 L Lymph % (Auto) 57.4 H [place] % (Auto) 10.3 H Eos % (Auto) 1.4 Baso % (Auto) 0.2 Absolute Neuts (auto) 1.6 L Absolute Lymphs (auto) 2.91 Nucleated RBC % 0 Sodium 142 Potassium 4.8 Chloride 111 H Carbon Dioxide 27.0 Anion Gap 4 L BUN 16 Creatinine 0.56 L Estim Creat Clear Calc 232.63 Est GFR (MDRD) Af Amer 221 Est GFR (MDRD) Non-Af 183 BUN/Creatinine Ratio 28.6 H Glucose 174 H Calcium 9.3 Total Bilirubin 0.40 AST 19 ALT 50 Alkaline Phosphatase 146 H Total Protein 6.6 Albumin 3.2 Globulin 3.4 Albumin/Globulin Ratio 0.9 Lipase 104 Discharge Plan Triage Chief Complaint: Abd Pain ED Provider: Edy Abad Dx/Rx/DC Orders Clinical Impression: Nausea vomiting and diarrhea, Gastroenteritis Instructions: ED Vomiting and Diarrhea ... Prescriptions: New ondansetron 4 mg tablet,disintegrating 4 mg PO Q8H PRN PRN (Reason: Nausea) Qty: 10 0RF dicyclomine 20 mg tablet 20 mg PO BID Qty: 10 0RF No Action moxifloxacin 0.5 % drops 1 drp EACH EYE TID 7 Days Qty: 3 0RF Primary Care Provider: Care Physician,No Primary Referrals: Care Physician,No Primary [Primary Care Provider] - 3-5 Days
[2022-11-18] MEDS: Ondansetron 4 MG/2 ML Vial IV (21:06)
[2022-11-18] MEDS: Dicyclomine 20 MG/2 ML Vial IM (21:06)
[2022-11-18 21:13] LABS: ALB/GLOB Ratio 0.9 RATIO (0.9-2.4); AST(SGOT) 19 U/L (15-37); Alanine Aminotransfer ALT/SGPT 50 U/L (16-61); Albumin, Serum 3.2 g/dL (3.2-5.0); Alkaline Phosphatase 146 U/L (45-117); Anion Gap 4 (5-15); BUN 16 mg/dL (7-18); BUN/Creat Ratio 28.6 RATIO (10-20); Calcium,Total 9.3 mg/dL (8.5-10.1); Chloride 111 mmol/L (98-107); Creatinine, Serum 0.56 mg/dL (0.70-1.30); EST Glomerular Filtration Rate 183 mL/min (>60); Est Glom Filt Rate - Afr Amer 221 mL/min (>60); Estimated Creatinine Clearance 232.63 ml/min; Globulin 3.4 g/dL (2.2-4.2); Glucose 174 mg/dL (74-106); Lipase 104 U/L (73-393); Potassium 4.8 mmol/L (3.5-5.1); Protein, Total 6.6 g/dL (6.4-8.2); Sodium Level 142 mmol/L (136-145)
[2022-11-18 22:15] VITALS: BP 118/67; PULSE 59; RESP 16; O2SAT 97
== END 2022-11-18 22:20 | disposition home or self-care (01) ==
LOC: ED 20:47
PROVIDERS: Emergency Provider Emergency Medicine; Visit Provider Emergency Medicine
DX: K52.9 Noninfective gastroenteritis and colitis, unspecified (principal); F17.210 Nicotine dependence, cigarettes, uncomplicated
CPT/HCPCS: 80053; 83690; 85025; 96372; 96374; 99283; A4216; J2405

== ENCOUNTER 2024-08-22 19:02 | Emergency (ER) | payer MEDICAID, SELFPAY ==
[2024-08-22 19:02] VITALS: BP 131/105; PULSE 105; RESP 20; TEMP 36.3; O2SAT 98; BMI 22.4
[2024-08-22 20:18] VITALS: PULSE 108; RESP 18
[2024-08-22] MEDS: Ipratropium/Albuterol Sulfate 3 ML AMPUL.NEB INHALATION (20:18)
--- NOTE | 2024-08-22 20:25 | RAD_ITS ---
STUDY: X-RAY CHEST REASON FOR EXAM: Male, 29 years old. Cough TECHNIQUE: PA and lateral COMPARISON: December 21, 2021 FINDINGS: The lungs are clear and expanded. There is no demonstrated pleural abnormality. Normal size heart. Normal mediastinum and aminata. Normal visualized pulmonary arteries. Normal visualized aortic arch and descending thoracic aorta. Normal visualized thoracic spine. Normal visualized ribs, clavicles, and shoulders. There is no demonstrated abnormality of the visualized soft tissue structures of the upper abdomen No significant change since prior study RAD/Chest PA and Lateral IMPRESSION: Normal x-ray examination of the chest. Electronically Signed: Eric Hanson MD at 21:32 EST ,
--- NOTE | 2024-08-22 20:26 | EDS_ITS ---
HPI HPI - URI History of Present Illness Chief Complaint: Cold Sx Informant: patient Onset/Context/Timing Onset: Days (10) Context: Gradual Onset Timing: Continuous Quality: Aching Location: Generalized Worsened by: - (Nothing) Relieved by: - (Nothing) Associated Symptoms Associated Symptoms: Positive for Headache, Sinus Pressure, Myalgias, Nausea, Vomiting, Diarrhea, Shortness of Breath, Chest Pain and Productive Cough; Negative for Nasal Congestion, Nonproductive cough or Hemoptysis Narrative Narrative: Patient presents with cough and chest pain that has been getting worse over the past 10 days. Patient states he started with upper respiratory congestion and sinus pressure. Patient states that over the last couple days it has moved down into his chest. Patient states he is coughing up some green sputum. Patient states he was recently diagnosed with sinusitis. Patient admits to some general myalgias. Patient also admits to some vomiting and diarrhea. Patient admits to subjective chills but denies any fevers. ROS ROS ED Constitutional Constitutional ED: Reports chills and subjective; Denies fever(s) Eyes Eyes: Denies blurry vision or change in vision ENT ENT ED: Reports rhinorrhea; Denies sore throat Cardiovascular Cardiovascular: Reports chest pain; Denies palpitations Respiratory/Chest Respiratory/Chest: Reports cough and dyspnea Gastrointestinal Gastrointestinal: Reports diarrhea, nausea and vomiting Genitourinary Genitourinary ED: Denies dysuria or hematuria Musculoskeletal Musculoskeletal: Reports myalgias; Denies back pain or neck pain Integumentary Denies abscess or rash Neurologic Neurologic: Denies headache(s) or weakness Allergic/Immunologic Allergic/Immunologic ED: Denies mouth swelling or urticaria [facility] Medical History Graves disease Tachycardia Anxiety GERD (gastroesophageal reflux disease) Home Medications ?Medication ?Instructions ?Recorded ?Last Taken ?Type moxifloxacin 0.5 % eye drops 1 drp EACH EYE TID 7 days #3 mL 10/06/22 Unknown Rx dicyclomine 20 mg tablet 20 mg PO BID #10 tabs 11/18/22 Unknown Rx ondansetron 4 mg disintegrating 4 mg PO Q8H PRN PRN Nausea #10 tabs 11/18/22 Unknown Rx tablet Allergy/AdvReac Type Severity Reaction Status Date / Time No Known Allergies Allergy Verified 11/18/22 20:09 Surgical History no surgical history no surgical history Social History Smoking Status: Current every day smoker tobacco type: e-cigarettes alcohol intake: current substance use type: does not use EXAM Physical Exam Const Vital Signs: 08/22/24 19:02 08/22/24 20:18 Temperature 97.3 F L Temperature Source Temporal Pulse Rate 105 H 108 H Respiratory Rate 20 H 18 Respiratory Pattern Normal Blood Pressure 131/105 H Blood Pressure Mean 113 Pulse Ox 98 Oxygen Delivery Method Room Air Positive well nourished and well developed General Appearance ED: well developed and NAD HEENT Reports moist mucous membranes Neck supple and no JVD Resp normal respiratory effort Auscultation: diminished lung sounds Cardio Rate: regular rate Rhythm: regular rhythm GI non-tender and non-distended Palpation: soft Neuro oriented x3, CN's II-XII intact bilaterally and no sensory deficits noted Sensorium / Orientation: alert Motor Exam: strength 5/5 throughout Psych mental status grossly normal MDM MDM MDM Narrative Medical decision making narrative: Differential diagnosis includes pneumonia, bronchitis, viral upper respiratory infection, and sinusitis. Neurologically is awake and alert. Following commands chest x-ray will be obtained to assess for pneumonia and bronchitis. Radiography Chest X-Ray - ED: 2 View, Read by ED Physician, Read by Radiologist and No Acute Disease Diagnostic Testing: PA and lateral chest x-ray was obtained. There are 2 views. On my independent interpretation, lung zaldivar are clear. There is normal cardiac silhouette. Bony thorax is normal. There is no acute process noted. Radiologist also interpreted the x-ray and agrees. Treatment and Re-Evaluation Narrative: Patient was given a DuoNeb aerosol here. Patient was advised of his findings. Patient was advised that this is most likely a viral bronchitis or upper respiratory infection. Patient was instructed to drink plenty of fluids. Patient was instructed to use [id number] cough medications as needed. Patient was instructed to take Tylenol or ibuprofen as needed for pain. Patient was instructed to return if worse in any way. Patient understood and was agreeable with the plan. All questions were answered. Discharge Plan Triage Chief Complaint: Cold Sx ED Provider: Will Palmer Dx/Rx/DC Orders Clinical Impression: Viral bronchitis Instructions: ED Bronchitis, No Antibiotic (Adult) Prescriptions: No Action moxifloxacin 0.5 % drops 1 drp EACH EYE TID 7 Days Qty: 3 0RF ondansetron 4 mg tablet,disintegrating 4 mg PO Q8H PRN PRN (Reason: Nausea) Qty: 10 0RF dicyclomine 20 mg tablet 20 mg PO BID Qty: 10 0RF Stand Alone Forms: ED Work / School Excuse Primary Care Provider: Care Physician,No Primary Referrals: Tee Nash MD [Med Staff - Journeyman Plumber] - 5-7 Days Care Physician,No Primary [Primary Care Provider] - Print Language: Swazi Disposition Disposition: Home, Self Care
[2024-08-22 21:04] VITALS: BP 134/84; PULSE 91; RESP 16; O2SAT 98
== END 2024-08-22 22:44 | disposition home or self-care (01) ==
PROVIDERS: Emergency Provider Emergency Medicine; Visit Provider Emergency Medicine
DX: J20.8 Acute bronchitis due to other specified organisms (principal); F17.290 Nicotine dependence, other tobacco product, uncomplicated
CPT/HCPCS: 71046; 94640; 99283